=== PATIENT | male | born 1950 | race Caucasian/White ===

== ENCOUNTER 2019-11-06 12:30 | Inpatient (IN) | payer OTHER, MEDICARE, SELFPAY ==
[2019-11-06] VITALS (15 sets, daily range): BP systolic 121–185; BP diastolic 80–118; PULSE 76–135; RESP 16–24; TEMP 36.6–37.2; O2SAT 92–98; BMI 32.9
--- NOTE | ~2019-11-06 | XR_ITS ---
EXAMINATION: XR chest 2V DATE: 11/11/2019 13:09 INDICATION: Shortness of breath. Cough. TECHNIQUE: Frontal and lateral views of the chest were obtained. COMPARISON: Chest 2 views 11/09/2019, chest CT 11/06/2019 FINDINGS: A calcified left lung nodule is consistent with old granulomatous disease. There are airspa ce opacities at left lung base. No pleural effusion or pneumothorax. Cardiomegaly is noted. IMPRESSION: 1. Unchanged airspace opacities at left lung base, consistent with atelectasis versus pneumonia. 2. Cardiomegaly. Reviewed, dictated and finalized at location A. ICAL INFORMATICS EDUCATOR
--- NOTE | ~2019-11-06 | XR_ITS ---
EXAMINATION: XR chest 2V DATE: 11/06/2019 13:01 INDICATION: Shortness of breath. TECHNIQUE: Frontal and lateral views of the chest were obtained. COMPARISON: Chest 2 views 10/04/2019, chest CT 10/24/2018 FINDINGS: Calcified left lung nodules are consistent with old granulomatous disease. There are airspa ce and interstitial opacities in right mid and lower lung zones and left lower lung zone. There is ch ronic blunting of the posterior costophrenic angles, likely scarring. No pneumothorax. The heart size is normal. IMPRESSION: 1. Unchanged airspace and interstitial opacities in right mid and lower lung zones and left lower edwige g zone, consistent with pulmonary edema versus pneumonia. Reviewed, dictated and finalized at location A. TEGIC ACCOUNT EXECUTIVE IMPRESSION: 1. Unchanged airspace and interstitial opacities in right mid and lower lung zo ángel and left lower lung zone, consistent with pulmonary edema versus pneumonia.
--- NOTE | ~2019-11-06 | CT_ITS ---
EXAMINATION: CT chest wo con DATE: 11/06/2019 19:40 INDICATION: Shortness of breath. Pneumonia. TECHNIQUE: Computed tomography (CT) of the chest was performed without intravenous contrast. The dose -length product was 370.11 mGy-cm. Automated exposure control and iterative reconstruction technique were employed. COMPARISON: CT dated 10/24/2018 FINDINGS: There is mediastinal lymphadenopathy. For instance a right paratracheal lymph node measures 1.6 cm compared with 9 mm on prior examination. There are small bilateral pleural effusions. Cardiom egaly. There is atherosclerosis. No significant pericardial effusion. There are gallstones. There has been development of diffuse groundglass opacification with background of reticular nodularity involv ing the right upper and lower lobe. There is a subsolid 4.5 mm right upper lobe nodule, image 50. The re is a 7 mm groundglass nodule of the minor fissure. There is left upper lobe and lingular airspace disease. There is left lower lobe bronchiectasis is. More confluent airspace consolidation in the rig ht and left lower lobe seen on prior examination is nearly resolved. IMPRESSION: 1. Interval development of extensive groundglass opacification with underlying interstitial infiltrat es of the right upper and lower lobe. This most likely is infectious/inflammatory. Edema is less favo red. There are associated subsolid nodules in the right upper lobe/minor fissure, largest measuring 7 mm, likely infectious/inflammatory. 2: Near complete resolution of bilateral lower lobe consolidation since prior examination. There is p ersistent left lower lobe bronchiectasis. 3: Progression of mediastinal lymphadenopathy, likely reactive. 4: Small pleural effusions. 5: Cholelithiasis. Reviewed, dictated and finalized at location A. CLERK DATA ENTRY IMPRESSION: 1. Interval development of extensive groundglass opacification with underlying interstitial infiltrates of the right upper and lower lobe. This most likely is infectious/inflammatory. Edema is less favored. There are associated subsolid nodules in the right upper lobe/minor fissure, largest measuring 7 mm, likely i nfectious/inflammatory. 2: Near complete resolution of bilateral lower lobe consolidation since prior e xamination. There is persistent left lower lobe bronchiectasis. 3: Progression of mediastinal lymphadenopathy, likely reactive. 4: Small pleural effusions. 5: Cholelithiasis.
--- NOTE | ~2019-11-06 | XR_ITS ---
EXAMINATION: XR chest 2V DATE: 11/09/2019 14:53 INDICATION: Congestive heart failure. TECHNIQUE: Frontal and lateral views of the chest were obtained. COMPARISON: Chest 2 views 11/06/2019, chest CT 11/06/2019, 10/24/2018 FINDINGS: There is mild atelectasis in left lower lung zone. A calcified left lung nodule is consiste nt with old granulomatous disease. There are interstitial opacities in right midlung zone. No pleural effusion or pneumothorax. Cardiomegaly is noted. IMPRESSION: 1. Interstitial opacities in right midlung zone with improvement, consistent with mild pulmonary mary a. 2. Cardiomegaly. Reviewed, dictated and finalized at location A. CTOR OF CATERING IMPRESSION: 1. Interstitial opacities in right midlung zone with improvement, consistent wi th mild pulmonary edema. 2. Cardiomegaly.
--- NOTE | ~2019-11-06 | US_ITS ---
EXAMINATION:US venous doppler LE BI INDICATION:Bilateral leg swelling TECHNIQUE: Multiple grayscale, color flow and Doppler images of the lower extremity deep venous syste ms were obtained and reviewed. COMPARISON:10/04/2019 FINDINGS: The common femoral, superficial femoral and popliteal veins demonstrate normal respiratory variation, augmentation and compressibility. Color flow is also seen within the posterior tibial, pe roneal, greater saphenous and profunda veins. IMPRESSION: 1: No lower extremity deep venous thrombosis. Reviewed, dictated and finalized at location A. ESCENT MEDICINE SPECIALIST
--- NOTE | ~2019-11-06 | US_ITS ---
US renal BI DATE: 11/13/2019 08:41 INDICATION: Hematuria TECHNIQUE: Real-time imaging and Doppler analysis of the kidneys COMPARISON: None FINDINGS: The right kidney measures approximately 10.3 cm length, left kidney 11.7 cm length. There i s no evidence of hydronephrosis of either kidney. There is a 1.9 x 2.7 cm right renal lower pole sonolucency, probable cyst. There is thickening of the urinary bladder wall. No bladder filling defect is identified. IMPRESSION: Probable 1.9 x 2.7 cm right lower pole renal cyst. Considering the history of hematuria, CT examination or MRI examination may be of benefit Reviewed, dictated and finalized at Location A. Reviewed, dictated and finalized at location A. DENT INTERN
--- NOTE | 2019-11-06 12:31 | ECG_ITS ---
Measurements Intervals [place] Rate: 118 P: MS: 0 QRS: 61 QRSD: 82 T: 62 QT: 302 QTc: 424 Interpretive Statements ATRIAL FIBRILLATION WITH RAPID VENTRICULAR RESPONSE BORDERLINE ST ABNORMALITY- LATERAL LEADS BASELINE ARTIFACT- V2 ABNORMAL ECG Electronically Signed On 11-06-2019 14:15:25 BIT SHARPENER OPERATOR by Sushant Lassiter D.O.
[2019-11-06 12:52] LABS: Basophils Percent Auto 0.1 % (0.2-1.2); Eosinophils Absolute Auto 0.1 K/mm3 (0-0.3); Hematocrit 36.7 % (42.0-52.0); Hemoglobin 11.4 g/dL (14.0-18.0); Immature Granulocyte Absolute 0.03 K/mm3 (0.00-0.031); Immature Granulocyte Percent A 0.4 % (0-0.5); Lymphocytes Absolute Auto 0.87 K/mm3 (0.9-3.2); Lymphocytes Percent Auto 12.7 % (18.3-44.2); Mean Corpuscular HGB Conc 31.1 g/dl (32-36); Mean Corpuscular Hemoglobin 28.2 pg (26-34); Mean Corpuscular Volume 90.8 fl (80-100); Mean Platelet Volume 9.2 fl (7.4-10.4); Monocytes Absolute Auto 0.5 K/mm3 (0.1-0.6); Monocytes Percent Auto 7.3 % (2.6-8.5); Neutrophils Absolute Auto 5.4 K/mm3 (1.3-6.7); Neutrophils Percent Auto 78.5 % (45.5-73.1); Platelet Count Result 210 k/mm3 (150-375); Red Blood Count 4.04 M/mm3 (4.6-6.20); Red Cell Distribution Width 16.2 % (11.5-14.5); White Blood Count 6.8 K/mm3 (4.5-10.0)
[2019-11-06 13:04] LABS: Blood Urea Nitrogen 20 mg/dL (9-20); Calcium 9.5 mg/dL (8.4-10.2); Carbon Dioxide 23 mmol/L (22-30); Chloride 102 mmol/L (98-107); Estimated CRCL calculation 65 ml/min; Estimated Glomerular Filt Rate > 60; Glucose 143 mg/dL (75-110); Potassium 3.9 mmol/L (3.4-5.0); Sodium 139 mmol/L (137-145)
[2019-11-06 13:13] LABS: NT Pro B Type Natriuretic Pept 1170 PG/ML (5-100)
--- NOTE | 2019-11-06 13:34 | ED.GENADULT ---
HPI - General Adult General Chief complaint: Shortness of Breath/Dyspnea <Myrna Zavala PA-C - Last Filed: 11/06/19 16:40> Stated complaint: SOB <Myrna Zavala PA-C - Last Filed: 11/06/19 16:40> Time Seen by Provider: 11/06/19 13:31 <Myrna Zavala PA-C - Last Filed: 11/06/19 16:40> Source: patient <Myrna Zavala PA-C - Last Filed: 11/06/19 16:40> Mode of arrival: ambulatory <Myrna Zavala PA-C - Last Filed: 11/06/19 16:40> Limitations: no limitations <Myrna Zavala PA-C - Last Filed: 11/06/19 16:40> History of Present Illness HPI narrative: Patient is here due to shortness of breath which she says has been increasing over the past 5 days. He is also had swelling in both of his feet and now in his lower legs also progressing over the last 5 days and he has been sleeping in a chair so he can breathe. He states that he has chronic pneumonia that no one has been able to fix. He is on a Anoro and Ventolin at home for COPD. He has had multiple echoes that show aortic stenosis and history of a-fib. <Myrna Zavala PA-C - Last Filed: 11/06/19 16:40> Related Data Home medications: Home Medications Medication Instructions Recorded Confirmed rosuvastatin 40 mg tablet 40 mg PO DAILY 08/06/19 11/06/19 <Myrna Zavala PA-C - Last Filed: 11/06/19 16:40> Allergies/adverse reactions: Allergies Allergy/AdvReac Type Severity Reaction Status Date / Time venom-honey bee Allergy Unknown Swelling Verified 11/06/19 18:51 <Myrna Zavala PA-C - Last Filed: 11/06/19 16:40> [facility] Past Medical History Medical History: Medical History Aortic stenosis Atrial fibrillation Benign essential hypertension Chronic obstructive pulmonary disease, unspecified History of transesophageal echocardiography (NENA) HLD (hyperlipidemia) HTN (hypertension) Pneumonia Pulmonary hypertension <Myrna Zavala PA-C - Last Filed: 11/06/19 16:40> Surgical History Surgical History: Surgical History H/O elbow surgery bilateral ulnar tunnel release H/O repair of right rotator cuff History of cardiac catheterization History of carpal tunnel release bilaterally Hx of tonsillectomy Status post left foot surgery After fracture <Myrna Zavala PA-C - Last Filed: 11/06/19 16:40> Family History Family History: Family History Mother Patient's mother is , Onset Age: 75 Father Patient's father is , Onset Age: 8 <Myrna Zavala PA-C - Last Filed: 11/06/19 16:40> Social History Social History: Social History Smoking status: Former smoker Tobacco type: cigarettes and e-cigarettes Smoking end date: 10/06/11 Alcohol intake: never Substance use: never Living arrangements: with family Additional living arrangements comments: He lives at home in [place], [place] with his . Occupation/Education: occupation Additional occupation/education comments: He works at a [employer] for the last 28 years and currently is working. He does have smoke exposure from the fumes. Gender identity (if verbalized by the patient): Male Spiritual care concerns: No Agree to blood products: Yes <Myrna Zavala PA-C - Last Filed: 11/06/19 16:40> Exam Const: General: healthy appearing <Myrna Zavala PA-C - Last Filed: 11/06/19 16:40> Orientation/consciousness: patient oriented x3 <Myrna Zavala PA-C - Last Filed: 11/06/19 16:40> HENMT: Head: normal to inspection <Myrna Zavala PA-C - Last Filed: 11/06/19 16:40> Eyes: Conjunctivae: conjunctivae normal <Myrna Zavala PA-C - Last Filed: 11/06/19 16:40> Pupils: Equal, round and reactive pupil
[2019-11-06] MEDS: IPRATROPIUM BR 0.02% INH SOLN 0.5 MG/2.5 ML VIAL INHALATION ×2 (13:57→19:22)
[2019-11-06] MEDS: ALBUTEROL SULFATE NEB 2.5 MG/0.5 ML INH INHALATION ×2 (13:58→19:22)
[2019-11-06] MEDS: FUROSEMIDE INJ 40 MG/4 ML VIAL IV PUSH (14:12)
[2019-11-06 16:49] LABS: Troponin I < 0.012 ng/mL (0.000-0.034)
--- NOTE | 2019-11-06 18:21 | ADMGEN ---
This patient, Pérez Meyers I, was admitted to IMU Room 206-. Patient/family oriented to hospital policies and general routines including ID bracelet, bed and alarms, visiting hours, pain management, procedures, bathroom and other care routines, personal items, smoking policy, room service/diet, and visiting hours. Valuables list has been completed. Information on how to activate the Rapid Response Team has been discussed. Patient/Family are encouraged to report perceived risks to care and to ask questions if they do not understand what they are told or what they should do.
--- NOTE | 2019-11-06 18:53 | PM.IMHP ---
H&P: HPI History of Present Illness Chief complaint: CHF Narrative: Pérez Meyers I is a 68 year old male with a history of chronic atrial fibrillation on Xarelto, severe aortic stenosis s/p ENNA followed by Dr. Villalobos Cardiology, COPD followed by Dr. Moreno Pulmology, who presented to the emergency room with worsening shortness of breath with exertion, bilateral leg swelling, orthopnea for last 7 days. 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 The patient was last in the hospital on 10/04/2019 and was given steroids and oral antibiotics at that time. The patient states his symptoms improved but then the last 7 days his symptoms came back. He began noticing increased leg swelling, worsening dyspnea on exertion, and a slight productive cough with green brown sputum. Patient has been sleeping on his recliner for the last 7 nights due to shortness of breath and coughing while lying flat. Just with him standing up moving around the room and sitting back down he reports feeling like his breathing is labored. He reported having some redness to his lower extremities, left greater than right and some calf pains. He denies any fevers, chills, lightheadedness, dizziness, headache, nausea, vomiting, diarrhea, constipation, abdominal pain, urinary symptoms, dysuria, frequent urination, chest pain, rhinorrhea, chest congestion, or any other symptoms at this time. Temperature is 99? F, blood pressure 184/118, heart rate atrial fibrillation 111 bpm, respiratory rate 24, oxygenation 98% on room air. Initial lab shows no leukocytosis, stable normocytic anemia, normal BMP other than glucose at 143. BNP the 1170. Initial troponin was negative. CXR showed Unchanged airspace and interstitial opacities in right mid and lower lung zones and left lower lung zone, consistent with pulmonary edema versus pneumonia. Initial EKG showed atrial fibrillation with RVR with a heart rate of 118 bpm, with no acute STT wave abnormality. Patient was admitted to the hospital under observation with what looks like diastolic congestive heart failure exacerbation, IV Lasix, and cardiology consult for atrial fibrillation with RVR. Code status: Full code POA: Daughter, Isaura Sarkar PCP: Dr. Agnes Mclain Food Order Delivery Runner: Dr. Villalobos Freight Brake Operator Dr. Moreno Review of Systems Review of Systems: All systems reviewed & are unremarkable except as noted in HPI and below PMFSH Past Medical History Medical History Aortic stenosis Atrial fibrillation Benign essential hypertension Chronic obstructive pulmonary disease, unspecified History of transesophageal echocardiography (NENA) HLD (hyperlipidemia) HTN (hypertension) Pneumonia Pulmonary hypertension Surgical History Surgical History H/O elbow surgery bilateral ulnar tunnel release H/O repair of right rotator cuff History of cardiac catheterization History of carpal tunnel release bilaterally Hx of tonsillectomy Status post left foot surgery After fracture Family History Family History Mother Patient's mother is , Onset Age: 75 Father Patient's father is , Onset Age: 8 Social History Social History Smoking status: Former smoker Tobacco type: cigarettes and e-cigarettes Smoking end date: 10/06/11 Alcohol intake: never Substance use: never Living arrangements: with family Additional living arrangements comments: He lives at home in [place], [place] with his . Occupation/Education: occupation Additional occupation/education comments: He works at a [employer] for the last 28 years and currently is working. He does have smoke exposure from the
[2019-11-06 19:56] LABS: Troponin I < 0.012 ng/mL (0.000-0.034)
[2019-11-06] MEDS: FAMOTIDINE 20 MG/2 ML VIAL IV PUSH (20:17)
[2019-11-06] MEDS: METOPROLOL TARTRATE 50 MG TAB 100 MG PO (20:17)
[2019-11-07] VITALS (21 sets, daily range): BP systolic 117–156; BP diastolic 61–84; PULSE 60–107; RESP 16–22; TEMP 36.3–36.8; O2SAT 93–100
[2019-11-07] MEDS: ALBUTEROL SULFATE NEB 2.5 MG/0.5 ML INH INHALATION ×4 (01:33→19:27)
[2019-11-07] MEDS: IPRATROPIUM BR 0.02% INH SOLN 0.5 MG/2.5 ML VIAL INHALATION ×4 (01:34→19:27)
[2019-11-07 04:25] LABS: Hemoglobin 10.5 g/dL (14.0-18.0); Mean Corpuscular HGB Conc 30.9 g/dl (32-36); Mean Corpuscular Hemoglobin 27.9 pg (26-34); Mean Corpuscular Volume 90.2 fl (80-100); Mean Platelet Volume 8.9 fl (7.4-10.4); Platelet Count Result 204 k/mm3 (150-375); Red Blood Count 3.77 M/mm3 (4.6-6.20); Red Cell Distribution Width 16.4 % (11.5-14.5); White Blood Count 6.1 K/mm3 (4.5-10.0)
[2019-11-07 04:42] LABS: Blood Urea Nitrogen 21 mg/dL (9-20); Carbon Dioxide 26 mmol/L (22-30); Chloride 102 mmol/L (98-107); Estimated CRCL calculation 72 ml/min; Estimated Glomerular Filt Rate > 60; Glucose 120 mg/dL (75-110); Potassium 3.6 mmol/L (3.4-5.0); Sodium 140 mmol/L (137-145)
[2019-11-07 04:49] LABS: INR 1.3; Partial Thromboplastin Time 30.3 SECONDS (22.3-36.8)
[2019-11-07 04:57] LABS: Hemoglobin A1C 7.2 % (<5.7)
[2019-11-07] MEDS: FAMOTIDINE 20 MG/2 ML VIAL IV PUSH ×2 (08:49→20:58)
[2019-11-07] MEDS: FUROSEMIDE INJ 40 MG/4 ML VIAL IV PUSH ×2 (08:49→17:52)
[2019-11-07] MEDS: POTASSIUM CHLORIDE 20 MEQ TABLET.ER PO (08:49)
[2019-11-07] MEDS: ROSUVASTATIN 10 MG TABLET 40 MG PO (08:49)
[2019-11-07] MEDS: lisinopriL 20 MG TABLET 40 MG PO (08:50)
[2019-11-07] MEDS: RIVAROXABAN 20 MG TABLET PO (08:50)
[2019-11-07] MEDS: METOPROLOL TARTRATE 50 MG TAB 100 MG PO ×2 (08:52→17:52)
--- NOTE | 2019-11-07 12:35 | PM.IMPN ---
Progress Note: A&P Assessment and Plan (1) Acute on chronic diastolic CHF (congestive heart failure): Code(s): I50.33 - Acute on chronic diastolic (congestive) heart failure Status: Acute Assessment and Plan: Cardiology consulted and appreciate input. Will continue diuresis with IV Lasix but increased to q.12 hours. Continue lisinopril and metoprolol. Will continue to monitor. Kidney function and electrolytes stable. (2) Atrial fibrillation with RVR: Code(s): I48.91 - Unspecified atrial fibrillation Status: Acute Assessment and Plan: Known atrial fibrillation. Heart rate was increased on it admission but now controlled with his home metoprolol and diltiazem. Telemetry reviewed on 11/07/2019 with heart in acceptable range. Continue Xarelto for anticoagulation. Will monitor. (3) Leg edema: Code(s): R60.0 - Localized edema Status: Acute Assessment and Plan: Most likely result of CHF exacerbation. On IV Lasix. Venous Dopplers of the lower extremities negative for DVT. Will monitor with diuresis. (4) Dyspnea on exertion: Code(s): R06.09 - Other forms of dyspnea Status: Acute Assessment and Plan: Improved with treatment of CHF. Will monitor as also has COPD. Not requiring oxygen. (5) Recurrent pneumonia: Code(s): J18.9 - Pneumonia, unspecified organism Status: Acute Assessment and Plan: CT chest on admission with interval development of extensive ground-glass opacification with underlying interstitial infiltrates at the right upper and lower lobe, near complete resolution of bilateral lower lobe consolidation, progression of mediastinal lymphadenopathy likely reactive and small pleural effusions. WBC remains normal. Afebrile. Urine Legionella and strep pneumoniae antigens are negative. Not on antibiotics and will not placed on antibiotics this time. Will continue nebulizer treatments. Will monitor. (6) Chronic obstructive pulmonary disease, unspecified: Qualifiers: COPD type: unspecified COPD Qualified Code(s): J44.9 - Chronic obstructive pulmonary disease, unspecified Code(s): J44.9 - Chronic obstructive pulmonary disease, unspecified Status: Acute Assessment and Plan: Home Anoro non-formulary and will hold. Continue nebulizer treatments. Will monitor. (7) Benign essential hypertension: Code(s): I10 - Essential (primary) hypertension Status: Acute Assessment and Plan: Blood pressure reviewed 11/07/2019 acceptable. Will monitor on diltiazem and metoprolol along with diuresis. Adjust treatment as needed. (8) DVT prophylaxis: Code(s): Z29.9 - Encounter for prophylactic measures, unspecified Status: Acute Assessment and Plan: On Xarelto. Time Spent With Patient Time with patient: 15 - 25 minutes Subjective Date/time seen: 11/07/19 12:35 Interval history: Date of Service: 11/07/2019. Admitted with CHF exacerbation, pneumonia. Most worried about swelling his feet but does have some shortness of breath. No chest pain or pressure. No headache or dizziness. No abdominal pain. No nausea or vomiting. Review of Systems Constitutional: Constitutional: Denies chills and Denies fever(s) ENT: Denies nasal congestion and Denies nasal discharge Cardiovascular: Cardiovascular: Denies chest pain, Reports leg edema and Denies lightheadedness Respiratory: Respiratory: Denies cough and Reports dyspnea Gastrointestinal: Gastrointestinal: Denies abdominal pain, Denies nausea and Denies vomiting Genitourinary: Genitourinary: Reports no additional male genitourinary complaints Musculoskeletal: Musculoskeletal: Reports no additional musculoskeletal complaints Integumentary/Breasts: Skin/Breast: Denies rash Neurologic: Denies headache(s) Psychiatric: Psychiatric: Denies anxiety, Denies confusion and Denies depression Exam Narrative: Exam Narrative: Awak
--- NOTE | 2019-11-07 14:04 | PM.CNCAR ---
Assessment and Plan Additional Plan acute on chronic diastolic heart failure, sever with low flow, Hx of CAD, Hx of chronic AF rate is controlled, Plan get records of recent work up done in [facility] TTE, IV diuresis, if is considered sever in latest TTE then evaluate for TAVR, cont oral anticoagulation, cont metoprolol and Diltiazem and lisinopril. Watch for renal function and electrolytes. History of Present Illness History of Present Illness Consult date/time: 11/07/19 14:04 Consult reason: shortness of breath Reason For Visit: CHF Narrative: Patient presented with 10 days Hx of progressive SOB associated with cough with green/yellow sputum, SOB is worse with lying flat and midl activity, It's associated wiht bilateral LE swelling and fatigue but no fever chills or chest pain. He had Hx of chronic AF, reduced EF in past and moderate to sever . He is seen by Dr Madsen in Office who recently did cardiac test but not avilabel for review. Review of Systems Review of Systems: All systems reviewed & are unremarkable except as noted in HPI and below PMFSH Past Medical History Medical History Aortic stenosis Atrial fibrillation Benign essential hypertension Chronic obstructive pulmonary disease, unspecified History of transesophageal echocardiography (NENA) HLD (hyperlipidemia) HTN (hypertension) Pneumonia Pulmonary hypertension Surgical History Surgical History H/O elbow surgery bilateral ulnar tunnel release H/O repair of right rotator cuff History of cardiac catheterization History of carpal tunnel release bilaterally Hx of tonsillectomy Status post left foot surgery After fracture Family History Family History Mother Patient's mother is , Onset Age: 75 Father Patient's father is , Onset Age: 8 Social History Social History Smoking status: Former smoker Tobacco type: cigarettes and e-cigarettes Smoking end date: 10/06/11 Alcohol intake: never Substance use: never Living arrangements: with family Additional living arrangements comments: He lives at home in [place], [place] with his . Occupation/Education: occupation Additional occupation/education comments: He works at a [employer] for the last 28 years and currently is working. He does have smoke exposure from the fumes. Gender identity (if verbalized by the patient): Male Spiritual care concerns: No Agree to blood products: Yes Meds Home Medications and Allergies Home Medications Medication Instructions Recorded Confirmed Type rosuvastatin 40 mg tablet 40 mg PO DAILY 08/06/19 11/06/19 History umeclidinium 62.5 mcg-vilanterol 1 inhalation INHALATION DAILY #90 08/13/19 11/06/19 Rx 25 mcg/actuation powdr for each inhalation rivaroxaban 20 mg tablet 20 mg PO DAILY #90 tablet 08/23/19 11/06/19 Rx albuterol sulfate 90 mcg/actuation 2 puff INHALATION Q4H PRN #54 gm 09/01/19 11/06/19 Rx aerosol inhaler benazepril 40 mg tablet 40 mg PO DAILY #90 tablet 10/26/19 11/06/19 Rx diltiazem HCl 300 mg 300 mg PO DAILY #90 cap 10/26/19 11/06/19 Rx capsule,extended release 24 hr metoprolol tartrate 100 mg tablet 100 mg PO BID #180 tablet 10/26/19 11/06/19 Rx Allergies Allergy/AdvReac Type Severity Reaction Status Date / Time venom-honey bee Allergy Unknown Swelling Verified 11/06/19 18:51 Vital Signs Vital Signs - 24 hr 11/06/19 16:27 11/06/19 18:00 11/06/19 18:32 Temperature 36.8 C Pulse Rate 100 104 H 101 H Respiratory Rate 16 16 18 Blood Pressure 121/84 132/80 185/109 H Pulse Oximetry 96 96 95 11/06/19 19:23 11/06/19 19:30 11/06/19 19:56 Temperature 36.6 C Pulse Rate 91 88 122 H Respiratory Rate 18 18 22 H
[2019-11-08] VITALS (26 sets, daily range): BP systolic 113–138; BP diastolic 46–73; PULSE 57–137; RESP 16–22; TEMP 36.4–36.9; O2SAT 92–98
[2019-11-08] MEDS: ALBUTEROL SULFATE NEB 2.5 MG/0.5 ML INH INHALATION ×4 (02:01→20:59)
[2019-11-08] MEDS: IPRATROPIUM BR 0.02% INH SOLN 0.5 MG/2.5 ML VIAL INHALATION ×4 (02:01→20:59)
[2019-11-08 05:24] LABS: Blood Urea Nitrogen 19 mg/dL (9-20); Calcium 8.8 mg/dL (8.4-10.2); Carbon Dioxide 28 mmol/L (22-30); Chloride 100 mmol/L (98-107); Estimated CRCL calculation 66 ml/min; Estimated Glomerular Filt Rate > 60; Glucose 134 mg/dL (75-110); Potassium 3.8 mmol/L (3.4-5.0); Sodium 138 mmol/L (137-145)
[2019-11-08] MEDS: METOPROLOL TARTRATE 50 MG TAB 100 MG PO ×2 (10:10→18:15)
[2019-11-08] MEDS: lisinopriL 20 MG TABLET 40 MG PO (10:10)
[2019-11-08] MEDS: FAMOTIDINE 20 MG/2 ML VIAL IV PUSH ×2 (10:10→20:21)
[2019-11-08] MEDS: POTASSIUM CHLORIDE 20 MEQ TABLET.ER PO (10:10)
[2019-11-08] MEDS: FUROSEMIDE INJ 40 MG/4 ML VIAL IV PUSH ×2 (10:11→18:16)
[2019-11-08] MEDS: RIVAROXABAN 20 MG TABLET PO (10:11)
[2019-11-08] MEDS: ROSUVASTATIN 10 MG TABLET 40 MG PO (10:11)
--- NOTE | 2019-11-08 10:52 | PM.IMPN ---
Progress Note: A&P Assessment and Plan (1) Acute on chronic diastolic CHF (congestive heart failure): Code(s): I50.33 - Acute on chronic diastolic (congestive) heart failure Status: Acute Assessment and Plan: Cardiology consulted and appreciate input. Will continue diuresis with IV Lasix q.12 hours. Continue lisinopril and metoprolol. Kidney function and electrolytes stable. Discussed with Cardiology today. Atrial fibrillation probably contributing as he does have increased heart rate just before medication is given. Patient did have cardiac catheterization in June 2019 with 40-50% eccentric stenosis proximal to mid LAD, 30-40% eccentric stenosis mid circumflex, 70% stenosis proximal segment up to smart channel, 70-80% stenosis proximal segment LP PL branch, small non dominant RCA with moderate to severe disease in mid segment, EF 60%. Will continue to monitor on IMU today. (2) Atrial fibrillation with RVR: Code(s): I48.91 - Unspecified atrial fibrillation Status: Acute Assessment and Plan: Known atrial fibrillation. Telemetry reviewed on 11/08/2019 with atrial fibrillation with increase in heart rate just before medication but then in acceptable range. Remains on home diltiazem and metoprolol. Diltiazem may be contributing to edema in legs. Continue Xarelto for anticoagulation. Will monitor. (3) Leg edema: Code(s): R60.0 - Localized edema Status: Acute Assessment and Plan: Most likely result of CHF exacerbation, diltiazem use. On IV Lasix as noted above. Venous Dopplers of the lower extremities negative for DVT. Will monitor with diuresis. (4) Aortic stenosis: Qualifiers: Cardiac valve disease etiology: nonrheumatic Qualified Code(s): I35.0 - Nonrheumatic aortic (valve) stenosis Code(s): I35.0 - Nonrheumatic aortic (valve) stenosis Status: Acute Assessment and Plan: Per Cardiology, echocardiogram done 08/27/2019 at [facility] with EF 60-65%, mild aortic valve calcification with moderate aortic stenosis. Continue treatment of other issues as noted. (5) Dyspnea on exertion: Code(s): R06.09 - Other forms of dyspnea Status: Acute Assessment and Plan: Improved from admission with treatment of CHF. Probably multifactorial. Not requiring oxygen. Will monitor. (6) Benign essential hypertension: Code(s): I10 - Essential (primary) hypertension Status: Acute Assessment and Plan: Blood pressure reviewed 11/08/2019 acceptable. Will monitor on diltiazem and metoprolol along with diuresis. Adjust treatment as needed. (7) Recurrent pneumonia: Code(s): J18.9 - Pneumonia, unspecified organism Status: Acute Assessment and Plan: CT chest on admission with interval development of extensive ground-glass opacification with underlying interstitial infiltrates at the right upper and lower lobe, near complete resolution of bilateral lower lobe consolidation, progression of mediastinal lymphadenopathy likely reactive and small pleural effusions. WBC remains normal. Afebrile. Urine Legionella and strep pneumoniae antigens are negative. Will not start antibiotics. On nebulizer treatments. Will monitor. (8) Chronic obstructive pulmonary disease, unspecified: Qualifiers: COPD type: unspecified COPD Qualified Code(s): J44.9 - Chronic obstructive pulmonary disease, unspecified Code(s): J44.9 - Chronic obstructive pulmonary disease, unspecified Status: Acute Assessment and Plan: Home Anoro non-formulary and will hold. Will give Symbicort while here. Continue nebulizer treatments. Will monitor. (9) DVT prophylaxis: Code(s): Z29.9 - Encounter for prophylactic measures, unspecified Status: Acute Assessment and Plan: On Xarelto. Time Spent With Patient Time with patient: 15 - 25 minutes Subjective Date/time seen: 11/08/19 10:52 Inte
--- NOTE | 2019-11-08 14:08 | PM.PNCARD ---
Progress Note: A&P Assessment and Plan (1) Acute on chronic diastolic CHF (congestive heart failure): Code(s): I50.33 - Acute on chronic diastolic (congestive) heart failure Status: Acute Assessment and Plan: Diuresing well. Still short of breath with any exertional activity. Unable to complete a full sentence without sounding short of breath. Continues to have cough. Cough is nonproductive. Is receiving nebulizer treatments which do somewhat help. Lower extremity edema still present. Family members at bedside concerned about all of his swelling, shortness of breath and cough. Continue furosemide 40 mg b.i.d.. Monitor renal function and electrolytes closely. Aortic stenosis only moderate on echo as below. Heart failure could possibly to be due to AFib with rapid ventricular response. Heart rate well controlled after his medications but just prior to heart rate does elevate with exertional activity. Will continue to monitor heart rate response as he is diuresed. (2) Atrial fibrillation with RVR: Code(s): I48.91 - Unspecified atrial fibrillation Status: Acute Assessment and Plan: Chronic. Rate is well controlled after his medications. As above pain Chronic anticoagulation with Xarelto. (3) Aortic stenosis: Code(s): I35.0 - Nonrheumatic aortic (valve) stenosis Status: Acute Assessment and Plan: Echocardiogram 08/27/[address] Madsen at [facility] revealed: Normal LV size. Moderate LVH. Normal LV systolic function. Ejection fraction 60-65%. Mild left atrial enlargement with spontaneous echo contrast. No definite left atrial appendage thrombus. Small intra arterial shunt on Doppler however no [id number] shunt on injection of agitated normal saline. Normal mitral valve. Mild MR. Mild aortic valve calcification with diminished leaflet excursions of the left coronary; average planned metered aortic valve area 1.2 centimeter sq consistent with moderate aortic stenosis. Additional Plan Plan discussed Dr. Castaneda 1415 11/08/2019 Time Spent With Patient Time with patient: less than 15 minutes Subjective Date/time seen: 11/08/19 14:08 Interval history: Follow-up for: CHF exacerbation, pneumonia. Date of service: 11/08/2019 Subjective: Short of breath with any exertional activity. Lower extremity edema slightly improved but not going away very quickly. Continues to have cough which is now nonproductive. No abdominal pain. No lightheadedness. Review of Systems Constitutional: Constitutional: Reports lethargy Eyes: Eyes: Denies blurry vision ENT: Reports Normal hearing present and Denies epistaxis Cardiovascular: Cardiovascular: Denies chest pain, Denies diaphoresis, Reports pedal edema, Reports leg edema, Denies lightheadedness and Denies palpitations Respiratory: Respiratory: Reports cough (Nonproductive), Reports dyspnea on exertion and Denies wheezing Gastrointestinal: Gastrointestinal: Denies abdominal pain, Denies nausea and Denies vomiting Genitourinary: Genitourinary: Denies hematuria and Reports urinary frequency (Related to diuretics) Musculoskeletal: Musculoskeletal: Denies back pain and Denies neck pain Integumentary/Breasts: Skin/Breast: Reports dry skin and Denies unusual bruising Neurologic: Denies headache(s) and Denies numbness Psychiatric: Psychiatric: Denies anxiety Exam Const: General: cooperative and comfortable Nutritional Appearance: obese Orientation/consciousness: patient oriented x3 Limitations: no limitations HENMT: Head: normal to inspection Ears: hearing grossly normal bilaterally Mouth: Yes Normal oral and palatal mucosa present Eyes: General: appearance normal, both eyes and all related structures Neck: Neck: normal visual inspection and full ROM Chest: Chest palpation & inspection: normal inspection of the chest Resp: Effort & Inspection: not able to speak in complete sentences, no audible wheez
[2019-11-09] VITALS (27 sets, daily range): BP systolic 112–134; BP diastolic 52–86; PULSE 62–107; RESP 16–22; TEMP 35.9–36.8; O2SAT 93–96
[2019-11-09] MEDS: ALBUTEROL SULFATE NEB 2.5 MG/0.5 ML INH INHALATION ×4 (03:14→20:38)
[2019-11-09] MEDS: IPRATROPIUM BR 0.02% INH SOLN 0.5 MG/2.5 ML VIAL INHALATION ×4 (03:14→20:38)
[2019-11-09 05:18] LABS: Blood Urea Nitrogen 18 mg/dL (9-20); Carbon Dioxide 29 mmol/L (22-30); Chloride 95 mmol/L (98-107); Estimated CRCL calculation 56 ml/min; Estimated Glomerular Filt Rate > 60; Glucose 178 mg/dL (75-110); Potassium 3.4 mmol/L (3.4-5.0); Sodium 137 mmol/L (137-145)
--- NOTE | 2019-11-09 06:52 | PCRCNOTE ---
pt would not release home mdi's to RT to be placed in the home med drawer; RT explained to the patient that it is not the hospital policy to allow patients to keep possession of home meds; patient threatened to leave the hospital; RN was notified regarding the situation
[2019-11-09] MEDS: METOPROLOL TARTRATE 50 MG TAB 100 MG PO ×2 (07:55→17:25)
[2019-11-09] MEDS: FUROSEMIDE INJ 40 MG/4 ML VIAL IV PUSH ×2 (07:55→17:26)
[2019-11-09] MEDS: FAMOTIDINE 20 MG/2 ML VIAL IV PUSH ×2 (07:55→20:24)
[2019-11-09] MEDS: ROSUVASTATIN 10 MG TABLET 40 MG PO (07:55)
[2019-11-09] MEDS: lisinopriL 20 MG TABLET 40 MG PO (07:56)
[2019-11-09] MEDS: RIVAROXABAN 20 MG TABLET PO (07:56)
[2019-11-09] MEDS: POTASSIUM CHLORIDE 20 MEQ TABLET PO (07:56)
[2019-11-09] MEDS: POTASSIUM CHLORIDE 20 MEQ TABLET.ER PO (07:56)
--- NOTE | 2019-11-09 11:55 | PM.PNCARD ---
Progress Note: A&P Assessment and Plan (1) Acute on chronic diastolic CHF (congestive heart failure): Code(s): I50.33 - Acute on chronic diastolic (congestive) heart failure Status: Acute Assessment and Plan: Diuresing well. Still short of breath with any exertional activity. Unable to complete a full sentence without sounding short of breath. Continues to have cough. Cough is nonproductive. Is receiving nebulizer treatments which do somewhat help. Lower extremity edema still present. Continue furosemide 40 mg b.i.d.. Monitor renal function and electrolytes closely. Aortic stenosis only moderate on echo as below. Heart failure could possibly to be due to AFib with rapid ventricular response. Heart rate well controlled after his medications but just prior to heart rate does elevate with exertional activity. Will continue to monitor heart rate response as he is diuresed. Will give a dose of metolazone 2.5 mg p.o. x1 Potassium chloride 40 mEq p.o. times 1 PA and lateral chest x-ray (2) Atrial fibrillation with RVR: Code(s): I48.91 - Unspecified atrial fibrillation Status: Acute Assessment and Plan: Chronic. Rate is well controlled after his medications. As above pain Chronic anticoagulation with Xarelto. (3) Aortic stenosis: Qualifiers: Cardiac valve disease etiology: nonrheumatic Qualified Code(s): I35.0 - Nonrheumatic aortic (valve) stenosis Code(s): I35.0 - Nonrheumatic aortic (valve) stenosis Status: Acute Assessment and Plan: Echocardiogram 08/27/[address] Madsen at [facility] revealed: Normal LV size. Moderate LVH. Normal LV systolic function. Ejection fraction 60-65%. Mild left atrial enlargement with spontaneous echo contrast. No definite left atrial appendage thrombus. Small intra arterial shunt on Doppler however no [id number] shunt on injection of agitated normal saline. Normal mitral valve. Mild MR. Mild aortic valve calcification with diminished leaflet excursions of the left coronary; average planned metered aortic valve area 1.2 centimeter sq consistent with moderate aortic stenosis. Subjective Date/time seen: 11/09/19 11:55 Interval history: Date of Service: 11/08/2019. Admitted with CHF exacerbation, pneumonia. Still has edema in legs. Also still with shortness of breath with exertion. No chest pain. No abdominal pain. No dizziness. Review of Systems Review of Systems: All systems reviewed & are unremarkable except as noted in HPI and below Constitutional: Constitutional: Denies headache(s) and Reports lethargy Eyes: Eyes: Denies blurry vision ENT: Reports Normal hearing present, Denies headache(s), Denies epistaxis and Denies neck pain Cardiovascular: Cardiovascular: Denies chest pain, Denies diaphoresis, Reports pedal edema, Reports leg edema, Denies lightheadedness, Denies palpitations and Reports dyspnea on exertion Respiratory: Respiratory: Reports cough (Nonproductive), Reports dyspnea on exertion and Denies wheezing Gastrointestinal: Gastrointestinal: Denies abdominal pain, Denies nausea and Denies vomiting Genitourinary: Genitourinary: Denies hematuria and Reports urinary frequency (Related to diuretics) Musculoskeletal: Musculoskeletal: Denies back pain, Denies neck pain and Denies numbness Integumentary/Breasts: Skin/Breast: Reports dry skin and Denies unusual bruising Neurologic: Reports Normal hearing present, Denies headache(s) and Denies numbness Psychiatric: Psychiatric: Denies anxiety Endocrine: Endocrine: Denies palpitations Allergic/Immunologic: Allergic/Immunologic: Denies wheezing Exam Narrative: Exam Narrative: General: Able to lie flat, no acute distress HEENT: moist mucous membranes, no jaundice or cyanosis or pallor, no facial asymmetry Neck: +ve JVD, No Carotid bruit, No Neck swelling Respiratory: No chest wall tenderness, equal air entry and expansion, CTAB C
--- NOTE | 2019-11-09 12:26 | PM.IMPN ---
Progress Note: A&P Assessment and Plan (1) Acute on chronic diastolic CHF (congestive heart failure): Code(s): I50.33 - Acute on chronic diastolic (congestive) heart failure Status: Acute Assessment and Plan: Patient having excellent UOP and edema slowly improving. Echo as mentioned below. Kidney function and electrolytes stable. Appreciate Cardiology input. Atrial fibrillation probably contributing to the CHF. Continue diuresis with IV Lasix q.12 hours. Continue lisinopril and metoprolol. (2) Atrial fibrillation with RVR: Code(s): I48.91 - Unspecified atrial fibrillation Status: Acute Assessment and Plan: Known atrial fibrillation. Remains on home diltiazem and metoprolol. Diltiazem may be contributing to edema in legs. Continue Xarelto for anticoagulation. Will monitor. (3) CAD (coronary artery disease): Code(s): I25.10 - Atherosclerotic heart disease of [place] coronary artery without angina pectoris Status: Acute Assessment and Plan: Patient had a cardiac catheterization in June 2019 with 40-50% eccentric stenosis proximal to mid LAD, 30-40% eccentric stenosis mid circumflex, 70% stenosis proximal segment up to smart channel, 70-80% stenosis proximal segment LP PL branch, small non dominant RCA with moderate to severe disease in mid segment, EF 60%. Continue medical managment (4) Leg edema: Code(s): R60.0 - Localized edema Status: Acute Assessment and Plan: Most likely result of CHF exacerbation, diltiazem use. On IV Lasix as noted above. Venous Dopplers of the lower extremities negative for DVT. Will monitor with diuresis. (5) Aortic stenosis: Qualifiers: Cardiac valve disease etiology: nonrheumatic Qualified Code(s): I35.0 - Nonrheumatic aortic (valve) stenosis Code(s): I35.0 - Nonrheumatic aortic (valve) stenosis Status: Acute Assessment and Plan: Per Cardiology, echocardiogram done 08/27/2019 at [facility] with EF 60-65%, mild aortic valve calcification with moderate aortic stenosis. Continue treatment of other issues as noted. (6) Dyspnea on exertion: Code(s): R06.09 - Other forms of dyspnea Status: Acute Assessment and Plan: Improved from admission with treatment of CHF. Probably multifactorial. Not requiring oxygen. Will monitor. (7) Benign essential hypertension: Code(s): I10 - Essential (primary) hypertension Status: Acute Assessment and Plan: Blood pressure reviewed 11/09/2019. BP well controlled. Continue diltiazem and metoprolol. Adjust treatment as needed. (8) Recurrent pneumonia: Code(s): J18.9 - Pneumonia, unspecified organism Status: Acute Assessment and Plan: CT chest on admission with interval development of extensive ground-glass opacification with underlying interstitial infiltrates at the right upper and lower lobe, near complete resolution of bilateral lower lobe consolidation, progression of mediastinal lymphadenopathy likely reactive and small pleural effusions. WBC not checked today. Remains afebrile. Urine Legionella and strep pneumoniae antigens are negative. Continue to hold on antibiotics. Continue nebulizer treatments. Will monitor. (9) Chronic obstructive pulmonary disease, unspecified: Qualifiers: COPD type: unspecified COPD Qualified Code(s): J44.9 - Chronic obstructive pulmonary disease, unspecified Code(s): J44.9 - Chronic obstructive pulmonary disease, unspecified Status: Acute Assessment and Plan: Home Anoro non-formulary so changed to Symbicort. Continue nebulizer treatments. (10) DVT prophylaxis: Code(s): Z29.9 - Encounter for prophylactic measures, unspecified Status: Acute Assessment and Plan: On Xarelto. Subjective Date/time seen: 11/09/19 12:26 Interval history: 68yo male here with CHF exacerb
[2019-11-09] MEDS: POTASSIUM CHLORIDE 20 MEQ TABLET 40 MEQ PO (13:54)
[2019-11-09] MEDS: metOLazone 2.5 MG TABLET PO (13:54)
[2019-11-10] VITALS (26 sets, daily range): BP systolic 103–128; BP diastolic 46–87; PULSE 59–125; RESP 18–22; TEMP 36.2–36.7; O2SAT 94–99
[2019-11-10] MEDS: IPRATROPIUM BR 0.02% INH SOLN 0.5 MG/2.5 ML VIAL INHALATION ×4 (02:30→20:50)
[2019-11-10] MEDS: ALBUTEROL SULFATE NEB 2.5 MG/0.5 ML INH INHALATION ×4 (02:30→20:50)
[2019-11-10 04:56] LABS: Hematocrit 37.7 % (42.0-52.0); Hemoglobin 11.8 g/dL (14.0-18.0); Mean Corpuscular HGB Conc 31.3 g/dl (32-36); Mean Corpuscular Hemoglobin 28.2 pg (26-34); Mean Corpuscular Volume 90.2 fl (80-100); Mean Platelet Volume 8.8 fl (7.4-10.4); Platelet Count Result 225 k/mm3 (150-375); Red Blood Count 4.18 M/mm3 (4.6-6.20); Red Cell Distribution Width 16.2 % (11.5-14.5); White Blood Count 6.9 K/mm3 (4.5-10.0)
[2019-11-10 05:17] LABS: Albumin Level 4.3 g/dL (3.5-5.1); Blood Urea Nitrogen 19 mg/dL (9-20); Calcium 9.3 mg/dL (8.4-10.2); Carbon Dioxide 31 mmol/L (22-30); Chloride 95 mmol/L (98-107); Estimated CRCL calculation 52 ml/min; Estimated Glomerular Filt Rate 60; Glucose 178 mg/dL (75-110); Magnesium 2.1 mg/dL (1.6-2.3); Phosphorus 4.4 mg/dL (2.5-4.5); Potassium 3.5 mmol/L (3.4-5.0); Sodium 138 mmol/L (137-145)
[2019-11-10] MEDS: METOPROLOL TARTRATE 50 MG TAB 100 MG PO ×2 (08:20→20:28)
[2019-11-10] MEDS: ROSUVASTATIN 10 MG TABLET 40 MG PO (08:20)
[2019-11-10] MEDS: lisinopriL 20 MG TABLET 40 MG PO (08:20)
[2019-11-10] MEDS: RIVAROXABAN 20 MG TABLET PO (08:20)
[2019-11-10] MEDS: FUROSEMIDE INJ 40 MG/4 ML VIAL IV PUSH ×2 (08:21→18:23)
[2019-11-10] MEDS: POTASSIUM CHLORIDE 20 MEQ TABLET.ER PO (08:21)
[2019-11-10] MEDS: FAMOTIDINE 20 MG/2 ML VIAL IV PUSH ×2 (08:21→20:28)
--- NOTE | 2019-11-10 12:33 | PM.PNCARD ---
Progress Note: A&P Assessment and Plan (1) Acute on chronic diastolic CHF (congestive heart failure): Code(s): I50.33 - Acute on chronic diastolic (congestive) heart failure Status: Acute Assessment and Plan: Diuresing well. Still short of breath with any exertional activity. Unable to complete a full sentence without sounding short of breath. Continues to have cough. Cough is nonproductive. Is receiving nebulizer treatments which do somewhat help. Lower extremity edema still present. Continue furosemide 40 mg b.i.d.. Monitor renal function and electrolytes closely. Aortic stenosis only moderate on echo as below. Heart failure could possibly to be due to AFib with rapid ventricular response. Heart rate well controlled after his medications but just prior to heart rate does elevate with exertional activity. Will continue to monitor heart rate response as he is diuresed. KCl 40 mEq p.o. x1. Chest x-ray shows improved congestion Continue IV diuretics. Anticipate transition to oral diuretics tomorrow (2) Atrial fibrillation with RVR: Code(s): I48.91 - Unspecified atrial fibrillation Status: Acute Assessment and Plan: Chronic. Rate is well controlled after his medications. As above pain Chronic anticoagulation with Xarelto. (3) Aortic stenosis: Qualifiers: Cardiac valve disease etiology: nonrheumatic Qualified Code(s): I35.0 - Nonrheumatic aortic (valve) stenosis Code(s): I35.0 - Nonrheumatic aortic (valve) stenosis Status: Acute Assessment and Plan: Echocardiogram 08/27/[address] Madsen at [facility] revealed: Normal LV size. Moderate LVH. Normal LV systolic function. Ejection fraction 60-65%. Mild left atrial enlargement with spontaneous echo contrast. No definite left atrial appendage thrombus. Small intra arterial shunt on Doppler however no [id number] shunt on injection of agitated normal saline. Normal mitral valve. Mild MR. Mild aortic valve calcification with diminished leaflet excursions of the left coronary; average planned metered aortic valve area 1.2 centimeter sq consistent with moderate aortic stenosis. Subjective Date/time seen: 11/10/19 12:33 Interval history: Date of Service: 11/10/2019. Admitted with CHF exacerbation, pneumonia. Still has edema in legs but better. Also still with shortness of breath with exertion. No chest pain. No abdominal pain. No dizziness. Review of Systems Review of Systems: All systems reviewed & are unremarkable except as noted in HPI and below Constitutional: Constitutional: Denies headache(s) and Reports lethargy Eyes: Eyes: Denies blurry vision ENT: Reports Normal hearing present, Denies headache(s), Denies epistaxis and Denies neck pain Cardiovascular: Cardiovascular: Denies chest pain, Denies diaphoresis, Reports pedal edema, Reports leg edema, Denies lightheadedness, Denies palpitations and Reports dyspnea on exertion Respiratory: Respiratory: Reports cough (Nonproductive), Reports dyspnea on exertion and Denies wheezing Gastrointestinal: Gastrointestinal: Denies abdominal pain, Denies nausea and Denies vomiting Genitourinary: Genitourinary: Denies hematuria and Reports urinary frequency (Related to diuretics) Musculoskeletal: Musculoskeletal: Denies back pain, Denies neck pain and Denies numbness Integumentary/Breasts: Skin/Breast: Reports dry skin and Denies unusual bruising Neurologic: Reports Normal hearing present, Denies headache(s) and Denies numbness Psychiatric: Psychiatric: Denies anxiety Endocrine: Endocrine: Denies palpitations Allergic/Immunologic: Allergic/Immunologic: Denies wheezing Exam Narrative: Exam Narrative: General: Able to lie flat, no acute distress HEENT: moist mucous membranes, no jaundice or cyanosis or pallor, no facial asymmetry Neck: +ve JVD, No Carotid bruit, No Neck swelling Respiratory: No chest wall tenderness, equal ai
[2019-11-10] MEDS: POTASSIUM CHLORIDE 20 MEQ TABLET 40 MEQ PO (12:56)
--- NOTE | 2019-11-10 17:58 | PM.IMPN ---
Progress Note: A&P Assessment and Plan (1) Acute on chronic diastolic CHF (congestive heart failure): Code(s): I50.33 - Acute on chronic diastolic (congestive) heart failure Status: Acute Assessment and Plan: Patient having excellent UOP on 3-4L per day and edema slowly improving. Echo as mentioned below. Kidney function and electrolytes stable. Appreciate Cardiology input. Atrial fibrillation probably contributing to the CHF. Continue diuresis with IV Lasix bid. Continue lisinopril and metoprolol. Add Aden hose. (2) Atrial fibrillation with RVR: Code(s): I48.91 - Unspecified atrial fibrillation Status: Acute Assessment and Plan: Known atrial fibrillation. Remains on home diltiazem and metoprolol. Diltiazem may be contributing to edema in legs. HR more elevated recently possibly from his increased activity level. Continue Xarelto for anticoagulation. Will monitor on tele for now. (3) CAD (coronary artery disease): Code(s): I25.10 - Atherosclerotic heart disease of [place] coronary artery without angina pectoris Status: Acute Assessment and Plan: Patient had a cardiac catheterization in June 2019 with 40-50% eccentric stenosis proximal to mid LAD, 30-40% eccentric stenosis mid circumflex, 70% stenosis proximal segment up to smart channel, 70-80% stenosis proximal segment LP PL branch, small non dominant RCA with moderate to severe disease in mid segment, EF 60%. Continue medical management with metoprolol, Crestor. (4) Leg edema: Code(s): R60.0 - Localized edema Status: Acute Assessment and Plan: Most likely result of CHF exacerbation, diltiazem use. On IV Lasix as noted above. Venous Dopplers of the lower extremities negative for DVT. Will monitor with diuresis. (5) Aortic stenosis: Qualifiers: Cardiac valve disease etiology: nonrheumatic Qualified Code(s): I35.0 - Nonrheumatic aortic (valve) stenosis Code(s): I35.0 - Nonrheumatic aortic (valve) stenosis Status: Acute Assessment and Plan: Per Cardiology, echo done 08/27/2019 at [facility] with EF 60-65%, mild aortic valve calcification with moderate aortic stenosis. Continue treatment of other issues as noted. (6) Dyspnea on exertion: Code(s): R06.09 - Other forms of dyspnea Status: Acute Assessment and Plan: Improved from admission with treatment of CHF. Probably multifactorial. Not requiring oxygen currently. Will monitor. (7) Benign essential hypertension: Code(s): I10 - Essential (primary) hypertension Status: Acute Assessment and Plan: Blood pressure reviewed 11/10/2019. BP remains well controlled. Continue diltiazem, lisinopril and metoprolol. Adjust treatment as needed. (8) Recurrent pneumonia: Code(s): J18.9 - Pneumonia, unspecified organism Status: Acute Assessment and Plan: CT chest on admission with interval development of extensive ground-glass opacification with underlying interstitial infiltrates at the right upper and lower lobe, near complete resolution of bilateral lower lobe consolidation, progression of mediastinal lymphadenopathy likely reactive and small pleural effusions. WBC remains normal. No change in the chronic cough. Remains afebrile. Urine Legionella and strep pneumoniae antigens are negative. Continue to hold on antibiotics. Continue nebulizer treatments. Will monitor. (9) Chronic obstructive pulmonary disease, unspecified: Qualifiers: COPD type: unspecified COPD Qualified Code(s): J44.9 - Chronic obstructive pulmonary disease, unspecified Code(s): J44.9 - Chronic obstructive pulmonary disease, unspecified Status: Acute Assessment and Plan: Home Anoro non-formulary so changed to Symbicort. Continue nebulizer treatments. (10) DVT prophylaxis: Code(s): Z29.9 - Encounter for prophyl
[2019-11-11] VITALS (28 sets, daily range): BP systolic 91–158; BP diastolic 54–90; PULSE 74–152; RESP 18–182; TEMP 36.7–38; O2SAT 92–94
[2019-11-11] MEDS: IPRATROPIUM BR 0.02% INH SOLN 0.5 MG/2.5 ML VIAL INHALATION ×4 (01:45→21:38)
[2019-11-11] MEDS: ALBUTEROL SULFATE NEB 2.5 MG/0.5 ML INH INHALATION ×4 (01:45→21:38)
[2019-11-11 05:32] LABS: Blood Urea Nitrogen 28 mg/dL (9-20); Calcium 9.1 mg/dL (8.4-10.2); Carbon Dioxide 33 mmol/L (22-30); Chloride 90 mmol/L (98-107); Estimated CRCL calculation 53 ml/min; Estimated Glomerular Filt Rate 51; Glucose 145 mg/dL (75-110); Potassium 4.1 mmol/L (3.4-5.0); Sodium 133 mmol/L (137-145)
[2019-11-11] MEDS: FAMOTIDINE 20 MG/2 ML VIAL IV PUSH ×2 (09:01→21:26)
[2019-11-11] MEDS: FUROSEMIDE INJ 40 MG/4 ML VIAL IV PUSH (09:01)
[2019-11-11] MEDS: lisinopriL 20 MG TABLET 40 MG PO (09:02)
[2019-11-11] MEDS: POTASSIUM CHLORIDE 20 MEQ TABLET.ER PO (09:02)
[2019-11-11] MEDS: ROSUVASTATIN 10 MG TABLET 40 MG PO (09:03)
[2019-11-11] MEDS: METOPROLOL TARTRATE 50 MG TAB 100 MG PO ×2 (09:03→21:26)
[2019-11-11] MEDS: RIVAROXABAN 20 MG TABLET PO (09:03)
[2019-11-11] MEDS: ACETAMINOPHEN 325 MG TABLET 650 MG PO ×2 (09:41→18:01)
--- NOTE | 2019-11-11 12:02 | PM.PNCARD ---
Progress Note: A&P Assessment and Plan (1) Acute on chronic diastolic CHF (congestive heart failure): Code(s): I50.33 - Acute on chronic diastolic (congestive) heart failure Status: Acute Assessment and Plan: Diuresing well. Still short of breath with any exertional activity. Unable to complete a full sentence without sounding short of breath. Continues to have cough. Cough is nonproductive. Is receiving nebulizer treatments which do somewhat help. Lower extremity edema still present. Continue furosemide 40 mg b.i.d.. Monitor renal function and electrolytes closely. Aortic stenosis only moderate on echo as below. Heart failure could possibly to be due to AFib with rapid ventricular response. Heart rate well controlled after his medications but just prior to heart rate does elevate with exertional activity. Will continue to monitor heart rate response as he is diuresed. Stop IV diuretics at this point. He is becoming prerenal. Start him on furosemide 40 mg p.o. b.i.d.. PA and lateral chest x-ray now to evaluate his cough, low-grade fever and for follow-up on his CHF (2) Atrial fibrillation with RVR: Code(s): I48.91 - Unspecified atrial fibrillation Status: Acute Assessment and Plan: Chronic. Rate isIncreasing some today. Continue current diltiazem and metoprolol dosages but certainly could increase if needed. As above pain Chronic anticoagulation with Xarelto. (3) Aortic stenosis: Qualifiers: Cardiac valve disease etiology: nonrheumatic Qualified Code(s): I35.0 - Nonrheumatic aortic (valve) stenosis Code(s): I35.0 - Nonrheumatic aortic (valve) stenosis Status: Acute Assessment and Plan: Echocardiogram 08/27/[address] Madsen at [facility] revealed: Normal LV size. Moderate LVH. Normal LV systolic function. Ejection fraction 60-65%. Mild left atrial enlargement with spontaneous echo contrast. No definite left atrial appendage thrombus. Small intra arterial shunt on Doppler however no [id number] shunt on injection of agitated normal saline. Normal mitral valve. Mild MR. Mild aortic valve calcification with diminished leaflet excursions of the left coronary; average planned metered aortic valve area 1.2 centimeter sq consistent with moderate aortic stenosis. Subjective Date/time seen: 11/11/19 12:02 Interval history: Date of Service: 11/11/2019. Admitted with CHF exacerbation, pneumonia. Still has edema in legs but better. still complains of shortness of breath and now has developed a cough and low-grade fever. No chest pain. No abdominal pain. No dizziness. Review of Systems Review of Systems: All systems reviewed & are unremarkable except as noted in HPI and below Constitutional: Constitutional: Denies headache(s) and Reports lethargy Eyes: Eyes: Denies blurry vision ENT: Reports Normal hearing present, Denies headache(s), Denies epistaxis and Denies neck pain Cardiovascular: Cardiovascular: Denies chest pain, Denies diaphoresis, Reports pedal edema, Reports leg edema, Denies lightheadedness, Denies palpitations and Reports dyspnea on exertion Respiratory: Respiratory: Reports cough (Nonproductive), Reports dyspnea on exertion and Denies wheezing Gastrointestinal: Gastrointestinal: Denies abdominal pain, Denies nausea and Denies vomiting Genitourinary: Genitourinary: Denies hematuria and Reports urinary frequency (Related to diuretics) Musculoskeletal: Musculoskeletal: Denies back pain, Denies neck pain and Denies numbness Integumentary/Breasts: Skin/Breast: Reports dry skin and Denies unusual bruising Neurologic: Reports Normal hearing present, Denies headache(s) and Denies numbness Psychiatric: Psychiatric: Denies anxiety Endocrine: Endocrine: Denies palpitations Allergic/Immunologic: Allergic/Immunologic: Denies wheezing Exam Narrative: Exam Narrative: General: Able to lie flat, no acute distres
--- NOTE | 2019-11-11 13:14 | PM.IMPN ---
Progress Note: A&P Assessment and Plan (1) Acute on chronic diastolic CHF (congestive heart failure): Code(s): I50.33 - Acute on chronic diastolic (congestive) heart failure Status: Acute Assessment and Plan: Patient having excellent UOP on 3-4L per day and edema slowly improving. Echo as mentioned below. Kidney function higher today with Cr 1.4. Electrolytes stable. Appreciate Cardiology input. Atrial fibrillation probably contributing to the CHF. Lasix changed to oral route. Continue to monitor in IMU (2) Atrial fibrillation with RVR: Code(s): I48.91 - Unspecified atrial fibrillation Status: Acute Assessment and Plan: Known atrial fibrillation. Remains on home diltiazem and metoprolol. HR elevated at times possibly due to increase activity and prior to next dose. Continue Xarelto for anticoagulation. Continue tele. (3) CAD (coronary artery disease): Code(s): I25.10 - Atherosclerotic heart disease of [place] coronary artery without angina pectoris Status: Acute Assessment and Plan: Patient had a cardiac catheterization in June 2019 with 40-50% eccentric stenosis proximal to mid LAD, 30-40% eccentric stenosis mid circumflex, 70% stenosis proximal segment up to smart channel, 70-80% stenosis proximal segment LP PL branch, small non dominant RCA with moderate to severe disease in mid segment, EF 60%. Continue medical management with metoprolol, Crestor. (4) Leg edema: Code(s): R60.0 - Localized edema Status: Acute Assessment and Plan: Most likely result of CHF exacerbation, diltiazem use. On IV Lasix as noted above. Venous Dopplers of the lower extremities negative for DVT. Will monitor with diuresis. (5) Aortic stenosis: Qualifiers: Cardiac valve disease etiology: nonrheumatic Qualified Code(s): I35.0 - Nonrheumatic aortic (valve) stenosis Code(s): I35.0 - Nonrheumatic aortic (valve) stenosis Status: Acute Assessment and Plan: Per Cardiology, echo done 08/27/2019 at [facility] with EF 60-65%, mild aortic valve calcification with moderate aortic stenosis. Continue treatment of other issues as noted. (6) Benign essential hypertension: Code(s): I10 - Essential (primary) hypertension Status: Acute Assessment and Plan: Blood pressure reviewed 11/11/2019. BP remains reasonably well controlled. Continue diltiazem, lisinopril and metoprolol. Adjust treatment as needed. (7) Recurrent pneumonia: Code(s): J18.9 - Pneumonia, unspecified organism Status: Acute Assessment and Plan: CT chest on 11/06/19 with interval development of extensive ground-glass opacification with underlying interstitial infiltrates at the right upper and lower lobe, near complete resolution of bilateral lower lobe consolidation, progression of mediastinal lymphadenopathy likely reactive and small pleural effusions. Has been having this nonproductive cough but now productive today. WBC normal yesterday. Temp to 100.4. Urine Legionella and strep pneumoniae antigens are negative. Continue nebulizer treatments. Will check CBC, CXR, UA. UA showing 3+ Blood with >75 RBC. WBC normal but CRP 4.9. CXR showing persistent LLL airspace disease. Blood, sputum and MRSA swab pending. Start Rocephin and Azithro. (8) Chronic obstructive pulmonary disease, unspecified: Qualifiers: COPD type: unspecified COPD Qualified Code(s): J44.9 - Chronic obstructive pulmonary disease, unspecified Code(s): J44.9 - Chronic obstructive pulmonary disease, unspecified Status: Acute Assessment and Plan: Home Anoro non-formulary so changed to Symbicort. Continue nebulizer treatments. (9) DVT prophylaxis: Code(s): Z29.9 - Encounter for prophylactic measures, unspecified Status: Acute Assessment and Plan: On Xarelto. Subjective Date/time seen:
[2019-11-11 14:34] LABS: Pneumococcal Antigen Urine Not Detected (Not Detected)
[2019-11-11 16:12] LABS: Basophils Percent Auto 0.3 % (0.2-1.2); Eosinophils Percent Auto 0.5 % (0-4.4); Hematocrit 38.1 % (42.0-52.0); Hemoglobin 11.8 g/dL (14.0-18.0); Immature Granulocyte Absolute 0.03 K/mm3 (0.00-0.031); Immature Granulocyte Percent A 0.5 % (0-0.5); Lymphocytes Absolute Auto 0.81 K/mm3 (0.9-3.2); Lymphocytes Percent Auto 12.2 % (18.3-44.2); Mean Corpuscular Volume 90.3 fl (80-100); Mean Platelet Volume 9.3 fl (7.4-10.4); Monocytes Absolute Auto 0.9 K/mm3 (0.1-0.6); Neutrophils Absolute Auto 4.9 K/mm3 (1.3-6.7); Neutrophils Percent Auto 73.5 % (45.5-73.1); Platelet Count Result 213 k/mm3 (150-375); Red Blood Count 4.22 M/mm3 (4.6-6.20); Red Cell Distribution Width 16.8 % (11.5-14.5); White Blood Count 6.6 K/mm3 (4.5-10.0)
[2019-11-11] MEDS: AZITHROMYCIN 250 MG TABLET 500 MG PO (16:25)
[2019-11-11 16:27] LABS: CRP 4.9 mg/dL (<1.0)
[2019-11-11] MEDS: FUROSEMIDE 40 MG TABLET PO (16:27)
[2019-11-11 17:44] LABS: Add Urine Microscopic? YES; Appearance Urine Clear (Clear); Bilirubin Urine Negative (Negative); Blood Urine 3+ (Negative); Color Urine Yellow (Yellow); Glucose Urine UA Negative (Negative); Ketones Urine Negative (Negative); Leukocyte Esterase Ur Negative LEU/UL (Negative); Mucus Urine Rare /lpf; Nitrate Urine Negative (Negative); Protein Urine Negative (Negative); RBC Urine >75 /hpf (0-2); Specific Grav Ur 1.015 (1.001-1.035); Urobilinogen Urine Negative mg/dL (<2.0)
[2019-11-11 19:58] LABS: Legionella pneumophila Ag Ur Not Detected (Not Detected)
[2019-11-11] MEDS: MELATONIN 3 MG TABLET PO (21:26)
[2019-11-12] VITALS (23 sets, daily range): BP systolic 92–144; BP diastolic 51–65; PULSE 64–131; RESP 18–24; TEMP 36.6–37.6; O2SAT 92–96
[2019-11-12] MEDS: ALBUTEROL SULFATE NEB 2.5 MG/0.5 ML INH INHALATION ×4 (04:03→20:31)
[2019-11-12] MEDS: IPRATROPIUM BR 0.02% INH SOLN 0.5 MG/2.5 ML VIAL INHALATION ×4 (04:03→20:31)
[2019-11-12 05:55] LABS: Blood Urea Nitrogen 32 mg/dL (9-20); Calcium 8.8 mg/dL (8.4-10.2); Carbon Dioxide 28 mmol/L (22-30); Chloride 90 mmol/L (98-107); Estimated CRCL calculation 52 ml/min; Estimated Glomerular Filt Rate 51; Glucose 127 mg/dL (75-110); Potassium 3.6 mmol/L (3.4-5.0); Sodium 133 mmol/L (137-145)
[2019-11-12] MEDS: RIVAROXABAN 20 MG TABLET PO (08:48)
[2019-11-12] MEDS: ROSUVASTATIN 10 MG TABLET 40 MG PO (08:48)
[2019-11-12] MEDS: FUROSEMIDE 40 MG TABLET PO ×2 (08:49→16:48)
[2019-11-12] MEDS: AZITHROMYCIN 250 MG TABLET PO (08:49)
[2019-11-12] MEDS: FAMOTIDINE 20 MG/2 ML VIAL IV PUSH ×2 (08:49→21:41)
[2019-11-12] MEDS: lisinopriL 20 MG TABLET 40 MG PO (08:49)
[2019-11-12] MEDS: POTASSIUM CHLORIDE 20 MEQ TABLET.ER PO (08:53)
[2019-11-12] MEDS: METOPROLOL TARTRATE 50 MG TAB 100 MG PO ×2 (08:53→21:43)
--- NOTE | 2019-11-12 11:08 | PM.IMPN ---
Progress Note: A&P Assessment and Plan (1) Acute on chronic diastolic CHF (congestive heart failure): Code(s): I50.33 - Acute on chronic diastolic (congestive) heart failure Status: Acute Assessment and Plan: Patient having excellent UOP and edema slowly improving. Echo as mentioned below. Kidney function higher but stable at Cr 1.4. Electrolytes stable. Appreciate Cardiology input. Atrial fibrillation probably contributing to the CHF. Lasix changed to oral route. Continue to monitor. (2) Atrial fibrillation with RVR: Code(s): I48.91 - Unspecified atrial fibrillation Status: Acute Assessment and Plan: Known atrial fibrillation. Remains on home diltiazem and metoprolol. HR elevated at times possibly due to increase activity and prior to next dose. Continue Xarelto for anticoagulation. Continue tele. (3) Recurrent pneumonia: Code(s): J18.9 - Pneumonia, unspecified organism Status: Acute Assessment and Plan: CT chest on 11/06/19 with interval development of extensive ground-glass opacification with underlying interstitial infiltrates at the right upper and lower lobe, near complete resolution of bilateral lower lobe consolidation, progression of mediastinal lymphadenopathy likely reactive and small pleural effusions. Has been having this nonproductive cough but now productive beginning on 11/11/19. WBC normal but temp to 100.4. Urine Legionella and strep pneumoniae antigens are negative. CXR (11/11/19) showing persistent LLL airspace disease. Blood culture pending. Sputum cutlure NGTD. MRSA swab pending. Continue Rocephin and Azithro. Continue nebulizer treatments. (4) Hematuria: Code(s): R31.9 - Hematuria, unspecified Status: Acute Assessment and Plan: UA showing 3+ Blood with >75 RBC. WBC normal but CRP 4.9. Had hematuria a few weeks ago but resolved. Suspect he may have persistent microscopic hematuria. Patient on Xarelto. Ex-smoker. Will check renal US and consider further evaluation if negative. (5) CAD (coronary artery disease): Code(s): I25.10 - Atherosclerotic heart disease of [place] coronary artery without angina pectoris Status: Acute Assessment and Plan: Patient had a cardiac catheterization in June 2019 with 40-50% eccentric stenosis proximal to mid LAD, 30-40% eccentric stenosis mid circumflex, 70% stenosis proximal segment up to smart channel, 70-80% stenosis proximal segment LP PL branch, small non dominant RCA with moderate to severe disease in mid segment, EF 60%. Continue medical management with metoprolol, Crestor. (6) Leg edema: Code(s): R60.0 - Localized edema Status: Acute Assessment and Plan: Most likely result of CHF exacerbation, diltiazem use. On IV Lasix as noted above. Venous Dopplers of the lower extremities negative for DVT. Will monitor with diuresis. (7) Aortic stenosis: Qualifiers: Cardiac valve disease etiology: nonrheumatic Qualified Code(s): I35.0 - Nonrheumatic aortic (valve) stenosis Code(s): I35.0 - Nonrheumatic aortic (valve) stenosis Status: Acute Assessment and Plan: Per Cardiology, echo done 08/27/2019 at [facility] with EF 60-65%, mild aortic valve calcification with moderate aortic stenosis. Continue treatment of other issues as noted. (8) Benign essential hypertension: Code(s): I10 - Essential (primary) hypertension Status: Acute Assessment and Plan: Blood pressure reviewed 11/12/2019. BP up and down at times. Continue diltiazem, lisinopril and metoprolol. Watch for HoTN. Adjust treatment as needed. (9) Chronic obstructive pulmonary disease, unspecified: Qualifiers: COPD type: unspecified COPD Qualified Code(s): J44.9 - Chronic obstructive pulmonary disease, unspecified Code(s): J44.9 - Chronic obstructive pulmonary disease, unspecified Statu
--- NOTE | 2019-11-12 12:31 | PM.PNCARD ---
Progress Note: A&P Assessment and Plan (1) Acute on chronic diastolic CHF (congestive heart failure): Code(s): I50.33 - Acute on chronic diastolic (congestive) heart failure Status: Acute Assessment and Plan: Pre renal 11/11/2019 changed to furosemide p.o. b.i.d.. Shortness of breath, lower extremity edema and energy level have improved but he still complains of the symptoms. Cough is what really bothers him. (2) Atrial fibrillation with RVR: Code(s): I48.91 - Unspecified atrial fibrillation Status: Acute Assessment and Plan: Chronic atrial fibrillation. Elevated heart rates with activity. Continue Metoprolol and diltiazem. Anticoagulated with Xarelto. (3) Aortic stenosis: Qualifiers: Cardiac valve disease etiology: nonrheumatic Qualified Code(s): I35.0 - Nonrheumatic aortic (valve) stenosis Code(s): I35.0 - Nonrheumatic aortic (valve) stenosis Status: Acute Assessment and Plan: Echocardiogram 08/27/[address] Madsen at [facility] revealed: Normal LV size. Moderate LVH. Normal LV systolic function. Ejection fraction 60-65%. Mild left atrial enlargement with spontaneous echo contrast. No definite left atrial appendage thrombus. Small intra arterial shunt on Doppler however no [id number] shunt on injection of agitated normal saline. Normal mitral valve. Mild MR. Mild aortic valve calcification with diminished leaflet excursions of the left coronary; average planned metered aortic valve area 1.2 centimeter sq consistent with moderate aortic stenosis. Additional Plan Recommend keeping him at least 1 more day monitor his renal function Discharge instructions entered for possible discharge over the weekend. He has not been using his home albuterol inhalers. Questioned why the solution that he was using in his nebulizer at home did not work. Vials he has at bedside are labeled sterile water for inhalation. Instructed that they contain no medication. Plan discussed with Dr. Castaneda 1930 11/12/2019 Subjective Date/time seen: 11/12/19 12:31 Interval history: Follow-up for: CHF exacerbation, pneumonia Date of service: 11/12/2019. Subjective: Feeling somewhat better. Still has cough. Slept approximately 15 hours yesterday. Lower extremity edema improving. Shortness of breath with exertional activity improved. No lightheadedness or chest discomfort. Feels that he is not voiding very much with the doses of Lasix. Review of Systems Review of Systems: All systems reviewed & are unremarkable except as noted in HPI and below Constitutional: Constitutional: Denies headache(s) and Reports lethargy (Improving) Eyes: Eyes: Denies blurry vision ENT: Reports Normal hearing present, Denies headache(s), Denies epistaxis and Denies neck pain Cardiovascular: Cardiovascular: Denies chest pain, Denies diaphoresis, Reports pedal edema (Improved), Reports leg edema (Improved), Denies lightheadedness, Denies palpitations and Reports dyspnea on exertion (Improving) Respiratory: Respiratory: Reports cough (Nonproductive), Reports dyspnea on exertion (Improved) and Denies wheezing Gastrointestinal: Gastrointestinal: Denies abdominal pain, Denies nausea and Denies vomiting Genitourinary: Genitourinary: Denies hematuria Musculoskeletal: Musculoskeletal: Denies back pain, Denies neck pain and Denies numbness Integumentary/Breasts: Skin/Breast: Reports dry skin and Denies unusual bruising Neurologic: Reports Normal hearing present, Denies headache(s) and Denies numbness Psychiatric: Psychiatric: Denies anxiety Endocrine: Endocrine: Denies palpitations Allergic/Immunologic: Allergic/Immunologic: Denies wheezing Exam Const: General: cooperative and comfortable Nutritional Appearance: obese Orientation/consciousness: patient o
[2019-11-12] MEDS: MELATONIN 3 MG TABLET PO (21:41)
[2019-11-13] VITALS (11 sets, daily range): BP systolic 91–109; BP diastolic 36–59; PULSE 72–115; RESP 16–20; TEMP 36.2–36.3; O2SAT 92–97
[2019-11-13] MEDS: IPRATROPIUM BR 0.02% INH SOLN 0.5 MG/2.5 ML VIAL INHALATION ×2 (01:32→09:19)
[2019-11-13] MEDS: ALBUTEROL SULFATE NEB 2.5 MG/0.5 ML INH INHALATION ×2 (01:32→09:19)
[2019-11-13 05:15] LABS: Hematocrit 35.6 % (42.0-52.0); Hemoglobin 11.1 g/dL (14.0-18.0); Mean Corpuscular HGB Conc 31.2 g/dl (32-36); Mean Corpuscular Hemoglobin 28.1 pg (26-34); Mean Corpuscular Volume 90.1 fl (80-100); Mean Platelet Volume 9.7 fl (7.4-10.4); Platelet Count Result 170 k/mm3 (150-375); Red Blood Count 3.95 M/mm3 (4.6-6.20); Red Cell Distribution Width 16.7 % (11.5-14.5)
[2019-11-13 05:35] LABS: Blood Urea Nitrogen 37 mg/dL (9-20); Calcium 8.5 mg/dL (8.4-10.2); Carbon Dioxide 31 mmol/L (22-30); Chloride 94 mmol/L (98-107); Estimated CRCL calculation 52 ml/min; Estimated Glomerular Filt Rate 51; Glucose 142 mg/dL (75-110); Potassium 3.7 mmol/L (3.4-5.0); Sodium 138 mmol/L (137-145)
[2019-11-13] MEDS: FAMOTIDINE 20 MG TABLET PO (09:39)
[2019-11-13] MEDS: METOPROLOL TARTRATE 50 MG TAB 100 MG PO (09:39)
[2019-11-13] MEDS: AZITHROMYCIN 250 MG TABLET PO (09:39)
[2019-11-13] MEDS: lisinopriL 20 MG TABLET 40 MG PO (09:39)
[2019-11-13] MEDS: POTASSIUM CHLORIDE 20 MEQ TABLET.ER PO (09:40)
[2019-11-13] MEDS: ROSUVASTATIN 10 MG TABLET 40 MG PO (09:40)
[2019-11-13] MEDS: RIVAROXABAN 20 MG TABLET PO (09:40)
[2019-11-13] MEDS: FUROSEMIDE 40 MG TABLET PO (09:41)
--- NOTE | 2019-11-13 11:20 | PM.DS ---
DS: Diagnosis Admitting Diagnosis Admitting Diagnosis: Acute on chronic diastolic (congestive) heart failure Discharge Diagnosis (1) Acute on chronic diastolic CHF (congestive heart failure): Code(s): I50.33 - Acute on chronic diastolic (congestive) heart failure Status: Acute Assessment and Plan: Patient treated with IV diuretics and was having excellent UOP with edema slowly improving. Echo as mentioned below. Kidney function higher but stable at Cr 1.4. Electrolytes stable. Appreciate Cardiology input. Atrial fibrillation probably contributing to the CHF. Lasix changed to oral route. (2) Atrial fibrillation with RVR: Code(s): I48.91 - Unspecified atrial fibrillation Status: Acute Assessment and Plan: Known atrial fibrillation. Remains on home diltiazem and metoprolol. HR elevated at times possibly due to increase activity and prior to next dose. Continued Xarelto for anticoagulation. (3) Recurrent pneumonia: Code(s): J18.9 - Pneumonia, unspecified organism Status: Acute Assessment and Plan: CT chest on 11/06/19 with interval development of extensive ground-glass opacification with underlying interstitial infiltrates at the right upper and lower lobe, near complete resolution of bilateral lower lobe consolidation, progression of mediastinal lymphadenopathy likely reactive and small pleural effusions. Has been having this nonproductive cough but now productive beginning on 11/11/19. WBC normal but temp to 100.4. Urine Legionella and strep pneumoniae antigens are negative. CXR (11/11/19) showing persistent LLL airspace disease. Blood culture NGTD. Sputum cutlure negative. MRSA swab negative. Treated with Rocephin and Azithromycin with improvement. Narrowed to Azithromycin at discharge. Nebulizer treatments also used. (4) Hematuria: Code(s): R31.9 - Hematuria, unspecified Status: Acute Assessment and Plan: UA showing 3+ Blood with >75 RBC. WBC normal but CRP 4.9. Had hematuria a few weeks ago but resolved. Suspect he may have persistent microscopic hematuria. Patient on Xarelto. Ex-smoker. Renal US showing 2.7cm right cyst but they did recommend a CT scan. This will be ordered as an outpatient. Patient informed and all questions answered. (5) CAD (coronary artery disease): Code(s): I25.10 - Atherosclerotic heart disease of [place] coronary artery without angina pectoris Status: Acute Assessment and Plan: Patient had a cardiac catheterization in June 2019 with 40-50% eccentric stenosis proximal to mid LAD, 30-40% eccentric stenosis mid circumflex, 70% stenosis proximal segment up to smart channel, 70-80% stenosis proximal segment LP PL branch, small non dominant RCA with moderate to severe disease in mid segment, EF 60%. We continued medical management with metoprolol, Crestor. (6) Leg edema: Code(s): R60.0 - Localized edema Status: Acute Assessment and Plan: Most likely result of CHF exacerbation, diltiazem use. On IV Lasix as noted above. Venous Dopplers of the lower extremities negative for DVT. Edema improvd with diuresis (7) Aortic stenosis: Qualifiers: Cardiac valve disease etiology: nonrheumatic Qualified Code(s): I35.0 - Nonrheumatic aortic (valve) stenosis Code(s): I35.0 - Nonrheumatic aortic (valve) stenosis Status: Acute Assessment and Plan: Per Cardiology, echo done 08/27/2019 at [facility] with EF 60-65%, mild aortic valve calcification with moderate aortic stenosis. Continue treatment of other issues as noted. (8) Benign essential hypertension: Code(s): I10 - Essential (primary) hypertension Status: Acute Assessment and Plan: Blood pressure reviewed. BP up and down at times. Treated with diltiazem, lisinopril and metoprolol. (9) Chronic obstructive pulmonary disease, unspecified: Qualifi
== END 2019-11-13 14:40 | disposition home or self-care (01) | DRG 291 ==
LOC: ANHED 17:03 → ANH2MED 17:15 → ANHIMU 18:03
PROVIDERS: Emergency Medicine; Hospitalist; Nurse Practitioner Adult Health; Physician Assistant; Admitting Provider Family Medicine; Emergency Provider Emergency Medicine; PCP Nurse Practitioner; Visit Provider Internal Medicine
DX: I11.0 Hypertensive heart disease with heart failure (principal); J18.9 Pneumonia, unspecified organism; I48.20 Chronic atrial fibrillation, unspecified; J44.0 Chronic obstructive pulmonary disease with (acute) lower respiratory infection; N02.9 Recurrent and persistent hematuria with unspecified morphologic changes; I50.33 Acute on chronic diastolic (congestive) heart failure; Z79.01 Long term (current) use of anticoagulants; I35.0 Nonrheumatic aortic (valve) stenosis; E78.5 Hyperlipidemia, unspecified; I27.20 Pulmonary hypertension, unspecified; I25.10 Atherosclerotic heart disease of native coronary artery without angina pectoris; R60.0 Localized edema; T46.1X5A Adverse effect of calcium-channel blockers, initial encounter; Z87.891 Personal history of nicotine dependence
CPT/HCPCS: 36415; 71046; 71250; 76775; 80048; 80069; 81001; 83036; 83735; 83880; 84484; 85025; 85027; 85610; 85730; 86140; 87040; 87070; 87081; 87205; 87449; 87899; 93005; 93970; 94640; 96374; 96375; 96376; 99285; A9270; G0378; G0379; J0696; J1940

== ENCOUNTER → 2019-11-22 15:48 | Outpatient (CLI) | payer OTHER, SELFPAY ==
--- NOTE | ~2019-11-22 | CT_ITS ---
EXAMINATION: CT abdomen pelvis wo con DATE: 11/22/2019 16:14 INDICATION: Hematuria TECHNIQUE: Computed tomography (CT) of the abdomen and pelvis was performed without intravenous contr ast. The dose-length product was 1014.88 mGy-cm. Automated exposure control and iterative reconstruct ion technique were employed. COMPARISON: None. FINDINGS: There is bilateral lower lobe peribronchial thickening. There is atherosclerosis of the aor ta and coronary arteries. No aneurysm. There are gallstones. There is a 3 cm right renal cyst with layering milk of calcium. There are bilat eral renal arterial vascular calcifications. There is a bladder stone. Bowel pattern is nonobstructiv e. No lymphadenopathy. There is a small fat-containing umbilical hernia. There is ankylosis of the le ft sacroiliac joint. There is osteoarthritis of the hips. Mild levoscoliosis of the thoracolumbar spi ne. Bowel pattern is nonobstructive. Normal appendix. No abnormal pelvic masses or fluid collections. Few scattered colonic diverticula without evidence for diverticulitis. IMPRESSION: 1. Cholelithiasis. 2: Bladder stone. 3: 3 cm right renal cyst with layering milk of calcium. 4: Bilateral lower lobe peribronchial thickening which may represent bronchiolitis/bronchitis. Reviewed, dictated and finalized at location A. TH THERAPIST IMPRESSION: 1. Cholelithiasis. 2: Bladder stone. 3: 3 cm right renal cyst with layering milk of calcium. 4: Bilateral lower lobe peribronchial thickening which may represent bronchiol itis/bronchitis.
== END ==
PROVIDERS: PCP Nurse Practitioner; Visit Provider Nurse Practitioner
DX: R31.9 Hematuria, unspecified (principal); K80.20 Calculus of gallbladder without cholecystitis without obstruction; N21.0 Calculus in bladder; N28.1 Cyst of kidney, acquired; R91.8 Other nonspecific abnormal finding of lung field
CPT/HCPCS: 74176

== ENCOUNTER → 2019-12-03 14:36 | Outpatient (CLI) | payer OTHER, SELFPAY ==
--- NOTE | ~2019-12-03 | XR_ITS ---
EXAMINATION: XR chest 2V EXAM DATE: 12/03/2019 14:58 INDICATION: Pneumonia, unspecified organism. TECHNIQUE: Frontal and lateral projections of the chest obtained and reviewed. Comparison is made to prior examination from 11/11/2019. FINDINGS: Left upper lobe granuloma. The lungs are otherwise clear. There are no pleural effusions. The cardiomediastinal silhouette is within normal limits. There is no pneumothorax suspected. The bones and soft tissues are unremarkable. IMPRESSION: No acute cardiopulmonary findings. Reviewed, dictated and finalized at location B. ICAL CELL CHANGER
== END ==
PROVIDERS: PCP Nurse Practitioner; Visit Provider Nurse Practitioner
DX: J18.9 Pneumonia, unspecified organism (principal)
CPT/HCPCS: 71046

== ENCOUNTER 2020-04-09 16:23 | Inpatient (IN) | payer OTHER, SELFPAY ==
--- NOTE | ~2020-04-09 | US_ITS ---
EXAMINATION: US carotid duplex BI DATE: 04/10/2020 12:35 INDICATION: Acute right temporal lobe infarct. TECHNIQUE: Grayscale, color Doppler, and pulsed Doppler images of the cervical carotid arteries were obtained. The degree of vessel stenosis is placed in one of the following categories: normal, <50%, 5 0-69%, >=70% but less than near-occlusion, near-occlusion, or total occlusion. Note that percent sten osis relative to normal distal artery lumen diameter is indirectly measured from velocity measurement s as described by Romulo, et al. Radiology 2003; 229:340-346. COMPARISON: None. FINDINGS: RIGHT: The right common carotid artery (CCA) peak systolic velocity (PSV) is 78 cm/s. The right internal car otid artery (ICA) PSV is 97 cm/s. The right ICA end-diastolic velocity (EDV) is 19 cm/s. The right IC A/CCA PSV ratio is 1.2. Grayscale and color Doppler images yield an estimate of <50% diameter reducti on from plaque in the ICA. There is antegrade flow in the right vertebral artery. LEFT: The left CCA PSV is 82 cm/s. The left ICA PSV is 107 cm/s. The left ICA EDV is 19 cm/s. The left ICA/ CCA PSV ratio is 1.3. Grayscale and color Doppler images yield an estimate of <50% diameter reduction from plaque in the ICA. There is antegrade flow in the left vertebral artery. IMPRESSION: 1. <50% stenosis in the right internal carotid artery. 2. <50% stenosis in the left internal carotid artery. Reviewed, dictated and finalized at location A.
--- NOTE | ~2020-04-09 | MR_ITS ---
EXAMINATION: MR brain/brain stem wo/w con DATE: 04/10/2020 12:23 INDICATION: Dizziness. Stroke. TECHNIQUE: Magnetic resonance imaging (MRI) of the brain and brainstem was performed without and with 20 mL MultiHance intravenous contrast. Sequences included sagittal and axial T1-weighted FSE, axial diffusion-weighted FS EPI, axial T2*-weighted GRE, axial T2-weighted FLAIR Propeller, and axial T2-we ighted Propeller. Postcontrast sequences included axial and coronal T1-weighted FSE. Apparent diffusi on coefficient (ADC) maps were created. COMPARISON: Head CT 04/09/2020, 08/12/2010 FINDINGS: There is a small acute infarct in right frontal lobe. There is a small acute infarct in rig ht insula. There is an acute infarct involving the right temporal lobe and right insula. There is an old infarct in the right frontal lobe. Foci of decreased T2*-weighted signal intensity in this distri bution may be calcifications or old blood products. There are chronic dystrophic calcifications in th e periventricular left parietal lobe. There are small old infarcts in the cerebellum bilaterally. The re are scattered areas of nonspecific increased T2-weighted signal intensity in the cerebral white ma tter, which is within normal limits for the patient's age. The ventricles are normal in size. The par anasal sinuses are clear. The orbits are normal. The mastoid air cells are normal. IMPRESSION: 1. Acute infarcts involving the right frontal lobe, right temporal lobe, and right insula in the expe cted distribution of right middle cerebral artery. 2. Old infarcts involving the right frontal lobe and cerebellum. Reviewed, dictated and finalized at location A. IMPRESSION: 1. Acute infarcts involving the right frontal lobe, right temporal lobe, and ri ght insula in the expected distribution of right middle cerebral artery. 2. Old infarcts involving the right frontal lobe and cerebellum.
--- NOTE | ~2020-04-09 | CT_ITS ---
EXAMINATION: CTA brain carotid DATE: 04/09/2020 17:37 INDICATION: Dizziness TECHNIQUE: Computed tomography (CT) of the head was performed without and subsequently with 100 cc Om nipaque 350 intravenous contrast. The mA was adjusted according to patient size. Sagittal and coronal reconstructions. Three-dimensional reconstructions were performed by the technologist. Iterative rec onstruction technique was employed. Exam dose: 1777.35 mGy-cm total exam DLP. COMPARISON: 08/12/2010 CT brain FINDINGS: There is chronic encephalomalacia in the right frontal parietal area likely secondary to ol d cerebrovascular accident. There is evidence of a subacute infarct involving a large distribution of the right temporal parietal area in the middle cerebral artery distribution. Bilateral vertebral artery, basilar artery and bilateral carotid siphon internal carotid artery calci fications. No vertebral or carotid or cerebral artery occlusion is evident. There is nonspecific diminished attenuation of the subcortical and periventricular cerebral white mat ter, likely due to chronic small vessel ischemic changes. No intracranial mass lesion or hemorrhage, midline shift. No subdural or epidural hematoma. There are atherosclerotic calcifications of the carotid bulbs and proximal internal carotid arteries, with greater stenosis at the proximal internal carotid artery on the left. No fracture or bone destruction of the cranial vault. The mastoid air cells and included paranasal sinuses are normally developed and aerated. IMPRESSION: Right middle cerebral artery territory subacute temporoparietal infarct Old right frontoparietal infarct No intracranial mass lesion or hemorrhage Reviewed, dictated and finalized at Location A. Reviewed, dictated and finalized at location A. IMPRESSION: Right middle cerebral artery territory subacute temporoparietal in farct Old right frontoparietal infarct No intracranial mass lesion or hemorrhage
[2020-04-09 16:32] VITALS: BP 155/61; PULSE 83; RESP 18; TEMP 37; O2SAT 100
--- NOTE | 2020-04-09 16:43 | ECG_ITS ---
Measurements Intervals [place] Rate: 85 P: [place]: 0 QRS: 50 QRSD: 91 T: 38 QT: 376 QTc: 449 Interpretive Statements ATRIAL FIBRILLATION ABNORMAL ECG Electronically Signed On 04-09-2020 20:43:33 CDT by Sushant Lassiter D.O.
[2020-04-09 16:57] LABS: Basophils Percent Auto 0.1 % (0.2-1.2); Hematocrit 36.2 % (42.0-52.0); Hemoglobin 12.1 g/dL (14.0-18.0); Immature Granulocyte Absolute 0.02 K/mm3 (0.00-0.031); Immature Granulocyte Percent A 0.2 % (0-0.5); Lymphocytes Absolute Auto 1.23 K/mm3 (0.9-3.2); Lymphocytes Percent Auto 12.5 % (18.3-44.2); Mean Corpuscular HGB Conc 33.4 g/dl (32-36); Mean Corpuscular Hemoglobin 30.3 pg (26-34); Mean Corpuscular Volume 90.7 fl (80-100); Mean Platelet Volume 9.2 fl (7.4-10.4); Monocytes Absolute Auto 0.7 K/mm3 (0.1-0.6); Monocytes Percent Auto 7.5 % (2.6-8.5); Neutrophils Absolute Auto 7.8 K/mm3 (1.3-6.7); Neutrophils Percent Auto 79.7 % (45.5-73.1); Platelet Count Result 184 k/mm3 (150-375); Red Blood Count 3.99 M/mm3 (4.6-6.20); Red Cell Distribution Width 13.7 % (11.5-14.5); White Blood Count 9.8 K/mm3 (4.5-10.0)
[2020-04-09 17:08] LABS: Alanine Aminotransferase 22 U/L (4-50); Albumin Level 4.3 g/dL (3.5-5.1); Alkaline Phosphatase 59 U/L (38-126); Aspartate Amino Transferase 25 U/L (17-59); Bilirubin,Total 0.4 mg/dL (0.2-1.3); Blood Urea Nitrogen 17 mg/dL (9-20); Calcium 8.9 mg/dL (8.4-10.2); Carbon Dioxide 22 mmol/L (22-30); Chloride 103 mmol/L (98-107); Estimated CRCL calculation 65 ml/min; Estimated Glomerular Filt Rate > 60; Glucose 115 mg/dL (75-110); Potassium 3.8 mmol/L (3.4-5.0); Sodium 135 mmol/L (137-145)
--- NOTE | 2020-04-09 17:19 | ED.GENADULT ---
HPI - General Adult General Chief complaint: Altered Mental Status Stated complaint: Dizzy, SOB Time Seen by Provider: 04/09/20 16:43 History of Present Illness HPI narrative: Patient is a 69 y/o male complaining of moderate dizziness since 8:00 PM yesterday. He describes his dizziness as light-headedness. He denies any room spinning sensation. He states that he had difficult driving and spilled water on the counter yesterday. There is no alleviating or exacerbating factor. He denies any focal weakness, numbness or speech difficulty. Related Data Allergies Allergy/AdvReac Type Severity Reaction Status Date / Time venom-honey bee Allergy Unknown Swelling Verified 04/09/20 16:44 Review of Systems Constitutional: Constitutional: Denies chills, Denies fever(s), Denies headache(s) and Denies weakness Eyes: Eyes: Denies blurry vision ENT: Denies headache(s) and Denies neck pain Cardiovascular: Cardiovascular: Denies chest pain and Denies dyspnea Respiratory: Respiratory: Denies cough and Denies dyspnea Gastrointestinal: Gastrointestinal: Denies abdominal pain, Denies diarrhea, Denies nausea and Denies vomiting Genitourinary: Genitourinary: Denies hematuria and Denies dysuria Musculoskeletal: Musculoskeletal: Denies back pain and Denies neck pain Neurologic: Reports dizziness, Reports headache(s) and Denies weakness PMFSH Past Medical History Medical History Aortic stenosis Atrial fibrillation Benign essential hypertension Chronic obstructive pulmonary disease, unspecified History of transesophageal echocardiography (NENA) HLD (hyperlipidemia) HTN (hypertension) Pneumonia Pulmonary hypertension Surgical History Surgical History H/O elbow surgery bilateral ulnar tunnel release H/O repair of right rotator cuff History of cardiac catheterization History of carpal tunnel release bilaterally Hx of tonsillectomy Status post left foot surgery After fracture Family History Family History Mother Patient's mother is , Onset Age: 75 Father Patient's father is , Onset Age: 8 Social History Social History Smoking status: Former smoker Tobacco type: cigarettes and e-cigarettes/vaping Smoking end date: 10/06/11 Alcohol intake: never Substance use: never Additional living arrangements comments: He lives at home in [place], [place] with his . Additional occupation/education comments: He works at a [employer] for the last 28 years and currently is working. He does have smoke exposure from the fumes. Gender identity (if verbalized by the patient): Male Spiritual care concerns: No Agree to blood products: Yes Exam Const: General: no acute distress and well developed Orientation/consciousness: oriented to person, oriented to place, oriented to time and patient oriented x3 HENMT: Head: normocephalic Ears: external ears normal General nose exam: Normal external nose present Eyes: General: appearance normal, both eyes and all related structures Conjunctivae: conjunctivae normal Neck: Neck: normal visual inspection and full ROM Chest: Chest palpation & inspection: normal inspection of the chest and no tenderness Resp: Effort & Inspection: normal respiratory effort Auscultation: clear to auscultation bilaterally Cardio: Rate: regular rate Rhythm: abnormal rhythm regularly irregular GI: GI Palp: No abdominal tenderness and Yes Soft to palpation Skin: General skin exam: normal color and turgor normal Neuro: General: oriented to person, oriented to place, oriented to time and patient oriented x3 Cranial nerves: Yes CN's II-XII intact bilaterally Cognition (Neuro): normal cognition Speech: normal speech Motor exam (neuro): 5
[2020-04-09] MEDS: SODIUM CHLORIDE 0.9% IV 1,000 ML 999 ML IV CONT (17:58)
[2020-04-09 18:30] VITALS: BP 155/89; PULSE 75; RESP 19; TEMP 36.7; O2SAT 94
[2020-04-09 18:35] LABS: INR 1.1; Prothrombin Time 14.1 Seconds (11.1-14.7)
[2020-04-09 18:36] LABS: Partial Thromboplastin Time 27.5 SECONDS (22.3-36.8)
[2020-04-09 18:39] LABS: Add Urine Microscopic? NO; Appearance Urine Clear (Clear); Bilirubin Urine Negative (Negative); Blood Urine Negative (Negative); Color Urine Straw (Yellow); Glucose Urine UA Negative (Negative); Ketones Urine Negative (Negative); Leukocyte Esterase Ur Negative LEU/UL (Negative); Nitrate Urine Negative (Negative); Protein Urine Negative (Negative); Urobilinogen Urine Negative mg/dL (<2.0)
[2020-04-09 20:10] VITALS: BP 150/82; PULSE 67; RESP 94; TEMP 36.2; O2SAT 22
[2020-04-09 20:54] VITALS: BP 149/70; PULSE 75; RESP 20; TEMP 36.9; O2SAT 99
[2020-04-09 21:00] VITALS: BP 141/68; PULSE 62; RESP 18; TEMP 36.4; O2SAT 95; BMI 35.5
--- NOTE | 2020-04-09 21:31 | ADMGEN ---
This patient, Pérez Meyers I, was admitted to 3 [facility] Surg Room 321-02 at 2054. Patient/family oriented to hospital policies and general routines including ID bracelet, bed and alarms, visiting hours, pain management, procedures, bathroom and other care routines, personal items, smoking policy, room service/diet, and visiting hours. Valuables list has been completed. Information on how to activate the Rapid Response Team has been discussed. Patient/Family are encouraged to report perceived risks to care and to ask questions if they do not understand what they are told or what they should do.
[2020-04-10] VITALS (14 sets, daily range): BP systolic 124–143; BP diastolic 59–76; PULSE 51–103; RESP 18–22; TEMP 36.4–36.9; O2SAT 91–98
--- NOTE | 2020-04-10 | ECHO_ITS ---
Patient Info Name: Pérez Meyers Age: 69 years : 1950 Gender: Male Ht: 68 in Wt: 233 lbs BSA: 2.29 m2 HR: 59 bpm BP: 141 / 68 mmHg Heart Rhythm: Atrial Fibrillation Technical Quality: Fair Exam Date: 04/10/2020 2:20 PM Exam Location: [facility] Pulmonary Patient Status: Outpatient Admit Date: 04/09/2020 Staff Ordering Physician: Columba Barney NP Export Freight Specialist: Celi Greene RDCS Attending Provider: Peri Drummond PA-C Referring Physician: Savita NATARAJAN; Exam Type: CA echo doppler w bubble study Study Info Indications - STROKE Complete two-dimensional, color flow and Doppler transthoracic echocardiogram is performed with agitated saline. Contrast/Agitated Saline Contrast/Ag. Saline: Agitated Saline Amount: 20.00 ml Administered By: Aaliyah Silverio RN Summary 1. Left ventricular systolic function is normal, estimated at 55-60%. 2. There is no increased left ventricular wall thickness. 3. Left atrial chamber dimension is severely enlarged. 4. Right atrial chamber dimension is moderately enlarged. 5. There is moderate to severe aortic valve stenosis with a peak velocity of 400 cm/s, mean gradient of 39 mmHg, and aortic valve area of 1.0-1.1 cm2. 6. There is trace aortic valve regurgitation. 7. There is mild mitral valve regurgitation. 8. There is mild tricuspid valve regurgitation. 9. Severe pulmonary hypertension, estimated pulmonary arterial systolic pressure is 56 mmHg. 10. No interatrial shunt with injection of agitated saline with and without Valsalva. Recommendations * Consider transesophageal echocardiogram if clinically indicated. Left Ventricle Left ventricular chamber dimension is normal. Left ventricular systolic function is normal, estimated at 55-60%. There is no increased left ventricular wall thickness. The left ventricular diastolic function is indeterminate. Global longitudinal strain is mildly elevated at -14 %. Right Ventricle Right ventricular chamber dimension is normal. Right ventricular systolic function is normal. Left Atria Left atrial chamber dimension is severely enlarged. Right Atria Right atrial chamber dimension is moderately enlarged. Atrial Septum No interatrial shunt with injection of agitated saline with and without Valsalva. Aortic Valve The aortic valve is probable trileaflet. There is moderate to severe aortic valve stenosis with a peak velocity of 400 cm/s, mean gradient of 39 mmHg, and aortic valve area of 1.0-1.1 cm2. There is trace aortic valve regurgitation. There is moderate aortic valve calcification. Pulmonic Valve The pulmonic valve is not well visualized. There is trace pulmonic regurgitation. Mitral Valve The mitral valve has thickened leaflets. There is mild mitral valve regurgitation. The mitral valve annulus is moderately calcified. Tricuspid Valve The tricuspid valve leaflets are normal. There is mild tricuspid valve regurgitation. Severe pulmonary hypertension, estimated pulmonary arterial systolic pressure is 56 mmHg. Pericardium/Pleural The pericardium appears normal. There is no pericardial effusion. Inferior Vena Cava Dilated inferior vena cava with <50% collapse upon inspiration consistent with elevated right atrial pressure, 10 mmHg. Aorta The aortic root size at the sinus of Valsalva is normal. Left Ventricular Outflow Tract
--- NOTE | 2020-04-10 00:01 | PM.IMHP ---
H&P: HPI History of Present Illness Chief complaint: stroke Narrative: Pérez Meyers I is a 69 year old male the patient was complaining of some moderate dizziness around 8:00 a.m. yesterday. He also had a headache. Patient has no focal weakness but was slow to answer questions. See no numbness or tingling. No facial droop.The patient denies any shortness of breath. He is wheezing and complaining about not getting his inhalers today and he has COPD. H&H Is 12.[address] of the brain was read as right middle cerebral artery territory subacute temporoparietal infarct. Old right frontoparietal infarct. No and cranial mass lesion or hemorrhage. Neurology has been consulted. The patient has been on Xarelto for his atrial fibrillation. The patient's EKG was read as atrial fibrillation rate controlled. Patient is on room air. His complaining of having headaches. Review of Systems Review of Systems: All systems reviewed & are unremarkable except as noted in HPI and below Constitutional: Constitutional: Reports as per HPI and Reports no additional constitutional complaints Eyes: Eyes: Reports as per HPI and Reports no additional eye complaints ENT: Reports system reviewed and no additional complaints, except as documented and Reports Normal hearing present Cardiovascular: Cardiovascular: Reports no additional cardiovascular complaints Respiratory: Respiratory: Reports no additional respiratory complaints and Reports no additional respiratory complaints Gastrointestinal: Gastrointestinal: Reports as per HPI and Reports no additional gastrointestinal complaints Musculoskeletal: Musculoskeletal: Reports no additional musculoskeletal complaints Integumentary/Breasts: Skin/Breast: Reports system reviewed and no additional complaints, except as docu and Reports as per HPI Neurologic: Reports system reviewed and no additional complaints, except as documented, Reports as per HPI and Reports Normal hearing present Psychiatric: Psychiatric: Reports no additional psychiatric complaints and Reports as per HPI Endocrine: Endocrine: Reports no additional endocrine complaints Hematologic/Lymphatic: Hematologic/Lymphatic: Reports no additional hematologic/lymphatic complaints Allergic/Immunologic: Allergic/Immunologic: Reports no additional allergic/immunologic complaints [facility] Past Medical History Medical History Aortic stenosis Atrial fibrillation Benign essential hypertension Chronic obstructive pulmonary disease, unspecified History of transesophageal echocardiography (NENA) HLD (hyperlipidemia) HTN (hypertension) Pneumonia Pulmonary hypertension Surgical History Surgical History H/O elbow surgery bilateral ulnar tunnel release H/O repair of right rotator cuff History of cardiac catheterization History of carpal tunnel release bilaterally Hx of tonsillectomy Status post left foot surgery After fracture Family History Family History Mother Patient's mother is , Onset Age: 75 Father Patient's father is Social History Social History (Updated 04/10/20 @ 00:11 by Columba Barney NP) Social History: Patient lives with his . He has a desires to have her is a durable power civil attorney for healthcare. The patient is full code. Patient has 4 children. He works at the [employer] in [facility] on the [employer] machine and the [employer] set. Patient is a former smoker and uses smoke E cigarettes and they put. He smoked 1 and half packs cigarettes a day for 30 years. But he denies any alcohol, marijuana, or illicit drugs. Smoking packs per day: 1.5 Smoking cigarettes per day: 30.0 Smoking status: Former smoker Tobacco type: cigarettes and e-cigarettes/vaping Smoking end date: 10/06/11 Alcohol intake: former
[2020-04-10] MEDS: ALBUTEROL SULFATE NEB 2.5 MG/0.5 ML INH INHALATION ×4 (01:07→20:48)
[2020-04-10] MEDS: ACETAMINOPHEN 325 MG TABLET 650 MG PO (01:16)
[2020-04-10] MEDS: ROSUVASTATIN 10 MG TABLET 40 MG PO (08:12)
[2020-04-10] MEDS: POTASSIUM CHLORIDE 20 MEQ TABLET.ER PO (08:13)
[2020-04-10] MEDS: FUROSEMIDE 40 MG TABLET PO ×2 (08:14→15:55)
[2020-04-10] MEDS: lisinopriL 20 MG TABLET 40 MG PO (08:14)
[2020-04-10] MEDS: METOPROLOL TARTRATE 50 MG TAB 100 MG PO ×2 (10:14→15:55)
[2020-04-10] MEDS: RIVAROXABAN 20 MG TABLET PO (15:55)
--- NOTE | 2020-04-10 16:21 | PM.IMPN ---
Progress Note: A&P Assessment and Plan (1) Stroke: Qualifiers: CVA mechanism: unspecified Qualified Code(s): I63.9 - Cerebral infarction, unspecified Code(s): I63.9 - Cerebral infarction, unspecified Status: Acute Assessment and Plan: MRI brain shows acute right-sided infarcts in the expected distribution of right MCA; old infarcts in R frontal lobe and cerebellum. He reports he did not know he had a stroke in the past. History of A fib on Xarelto. He admits to missing some Xarelto doses. Continue his home Xarelto and statin therapy. Appreciate neurology consult. Echocardiogram with bubble study is pending. (2) Atrial fibrillation: Qualifiers: Atrial fibrillation type: unspecified Qualified Code(s): I48.91 - Unspecified atrial fibrillation Code(s): I48.91 - Unspecified atrial fibrillation Status: Acute Assessment and Plan: He is rate controlled on his home oral regimen with diltiazem and metoprolol. Continue Xarelto. Follows with Dr Madsen. (3) Chronic diastolic CHF (congestive heart failure): Code(s): I50.32 - Chronic diastolic (congestive) heart failure Status: Chronic Assessment and Plan: Appears well-compensated. Continue home regimen with beta-blockade and lasix. (4) Hyperlipidemia, mixed: Code(s): E78.2 - Mixed hyperlipidemia Status: Acute Assessment and Plan: Continue home statin therapy. (5) Chronic obstructive pulmonary disease, unspecified: Qualifiers: COPD type: unspecified COPD Qualified Code(s): J44.9 - Chronic obstructive pulmonary disease, unspecified Code(s): J44.9 - Chronic obstructive pulmonary disease, unspecified Status: Acute Assessment and Plan: He can continue his home Anoro if someone can bring it from home. No evidence of respiratory distress. Subjective Date/time seen: 04/10/20 0915 Interval history: Mr. Meyers is a 69yo M admitted for acute CVA. He described that his symptoms began 2 days ago when he started to feel dizzy, was driving and felt confused and pulled off into the grass. He is feeling back to normal now and is eager for discharge. He denies chest pain, palpitations, or shortness of breath. He is ambulating independently. He is tolerating oral intake without nausea or vomiting. Review of Systems Review of Systems: Narrative: Twelve systems were reviewed with pertinent positives and negatives as per HPI. Exam Narrative: Exam Narrative: General: Male sitting comfortably in bedside chair in no acute distress. Neuro: Alert and oriented. Slight facial droop noted with smiling; left hand pharmacy tech strength slightly decreased compared to left, ambulating independently. Speech is clear. HEENT: Normocephalic, EOMI, PERRL, oral mucosa moist, very slight left facial droop noted. Cardiovascular: Rate normal, rhythm irregular. Systolic murmur heard over left sternal border. Telemetry review shows atrial fibrillation with controlled rates HR 70s-90s. Respiratory: Lungs clear to auscultation all lopez. Non-labored breathing. Abdomen: Soft, non-tender, non-distended, bowel sounds present. Extremities: Peripheral pulses intact. Trace pitting edema JULIO. Negative rhonda's. Objective Data Vital Signs Vital Signs: Last Vital Signs Temp 98.5 F 04/10/20 14:00 Pulse 60 04/10/20 14:00 Resp 20 04/10/20 14:00 BP 140/59 L 04/10/20 14:00 Pulse Ox 98 04/10/20 14:00 Intake/Output Intake/Output: Intake & Output 04/07/20 04/08/20 04/09/20 04/10/20 23:59 23:59 23:59 23:59 Intake Total 1000 1600 Output Total 500 Balance 1000 1100 Meds/Results Medications: Active Medications Generic Name Dose Route Start Last Admin Trade Name Freq PRN Reason Stop Dose Admin Acetaminophen 650 mg 04/10/20 00
--- NOTE | 2020-04-10 20:13 | CONS_ITS ---
DATE OF CONSULTATION: 04/10/2020 HISTORY OF PRESENT ILLNESS: A 69-year-old right-handed male has been admitted to [facility] through the emergency room for the complaints of dizziness along with a headache, but no focal weakness or facial droop. The patient does have ongoing history of difficulties in breathing with COPD. Initial evaluation in the emergency room, he had a CT of the brain, which reveals subacute temporoparietal infarct in addition to old right frontoparietal infarct, but no evidence of bleed. The patient had been on Xarelto for atrial fibrillation, which was rate controlled. His past historyis consistent with as mentioned above, particularly aortic stenosis with atrial fibrillation, benign essential hypertension, COPD, transesophageal echocardiography has been done, history of hyperlipidemia, hypertension, and pulmonary hypertension. He has undergone elbow surgery, bilateral ulnar tunnel release, repair of the right rotator cuff, cardiac catheterization, carpal tunnel release bilaterally, tonsillectomy and left foot surgery subsequent to a fracture. He smokes [id number]-b-half pack per day, but former smoker, former drinker, never substance user. MEDICATIONS: At the time of admission, he was receivin. Lasix 40 mg b.i.d. 2. Rosuvastatin 40 mg daily. 3. Benazepril 40 mg daily. 4. Diltiazem 300 daily. 5. Metoprolol 100 mg twice a day. 6. Rivaroxaban 20 mg daily. 7. Potassium chloride 20 mEq daily. ALLERGIES: HE IS ALLERGIC TO VENOM AND HONEY BEE. ? Evaluation up until now included the carotid Doppler study, which revealed less than 50% stenosis in the right and left internal carotid artery. Brain MRI revealed acute infarct in the right frontal lobe, right temporal lobe, right insula in the distribution of right middle cerebral artery in addition to old infarct involving the right frontal lobe and cerebellum. Echocardiogram with 55% to 60% left ventricle systolic function, increased left ventricular wall thickness, severely enlarged left atrial chamber, moderately enlarged right atrial chamber, severe aortic valve stenosis with trace regurgitation of aortic, mitral, and tricuspid valves with severe pulmonary hypertension, but no intra-atrial shunt. MEDICATIONS: At this stage, the patient is receivin. Lisinopril 40 mg daily. 2. Diltiazem 300 mg daily. 3. Furosemide 40 mg twice a day. 4. Rivaroxaban 20 mg daily. 5. Rosuvastatin 40 mg daily. PHYSICAL EXAMINATION: GENERAL: On examination, he is awake, alert, cooperative, in no obvious acute distress. HEENT: Head normocephalic with no cranial bruit. Ear, nose, and throat examination normal. NECK: Supple with no cervical bruit. No thyromegaly. No lymphadenopathy. HEART: Regular with no murmur. LUNGS: Clear to auscultation. ABDOMEN: Soft with no organomegaly. HEART: Regular with murmur. LUNGS: Clear to auscultation with no crepitation. ABDOMEN: Soft with no organomegaly. NEUROLOGICAL: He is awake, alert, oriented x3. His speech not dysphasic, no dysarthric, no dysphonic. Pupils round, regular. Deluna of vision full. Extraocular movements full. Face symmetrical. Tongue midline. Uvula midline. Motor examination revealed him to have drift against gravity with hyperreflexia and upgoing plantar response on the left side. There is evidence of ataxia, dysmetria on [id number]-finger bilaterally. IMPRESSION: Bihemispheric stroke with anterior and posterior fossa in addition to the history of abnormal echocardiogram and also anticoagulation therapy. Treatment will be continued as such. In addition, we will obtain the Cardiology opinion again to see if any further intervention is necessary. LARISA DIANA M.D.
[2020-04-11] VITALS (7 sets, daily range): BP systolic 149; BP diastolic 52–77; PULSE 55–99; RESP 18–20; TEMP 36.8; O2SAT 90–93
[2020-04-11] MEDS: ALBUTEROL SULFATE NEB 2.5 MG/0.5 ML INH INHALATION ×2 (02:02→07:25)
[2020-04-11 06:39] LABS: Basophils Percent Auto 0.3 % (0.2-1.2); Eosinophils Absolute Auto 0.1 K/mm3 (0-0.3); Eosinophils Percent Auto 1.5 % (0-4.4); Immature Granulocyte Absolute 0.01 K/mm3 (0.00-0.031); Immature Granulocyte Percent A 0.1 % (0-0.5); Lymphocytes Absolute Auto 1.31 K/mm3 (0.9-3.2); Lymphocytes Percent Auto 19.2 % (18.3-44.2); Mean Corpuscular HGB Conc 33.3 g/dl (32-36); Mean Corpuscular Hemoglobin 30.8 pg (26-34); Mean Corpuscular Volume 92.3 fl (80-100); Mean Platelet Volume 9.2 fl (7.4-10.4); Monocytes Absolute Auto 0.6 K/mm3 (0.1-0.6); Monocytes Percent Auto 8.9 % (2.6-8.5); Neutrophils Absolute Auto 4.8 K/mm3 (1.3-6.7); Platelet Count Result 168 k/mm3 (150-375); Red Cell Distribution Width 13.8 % (11.5-14.5); White Blood Count 6.8 K/mm3 (4.5-10.0)
[2020-04-11 06:55] LABS: Alanine Aminotransferase 17 U/L (4-50); Albumin Level 3.8 g/dL (3.5-5.1); Alkaline Phosphatase 58 U/L (38-126); Aspartate Amino Transferase 20 U/L (17-59); Bilirubin,Total 0.4 mg/dL (0.2-1.3); Blood Urea Nitrogen 15 mg/dL (9-20); Calcium 8.7 mg/dL (8.4-10.2); Carbon Dioxide 30 mmol/L (22-30); Chloride 100 mmol/L (98-107); Estimated CRCL calculation 62 ml/min; Estimated Glomerular Filt Rate 60; Glucose 134 mg/dL (75-110); Potassium 3.5 mmol/L (3.4-5.0); Sodium 136 mmol/L (137-145)
[2020-04-11] MEDS: POTASSIUM CHLORIDE 20 MEQ TABLET.ER PO (08:51)
[2020-04-11] MEDS: FUROSEMIDE 40 MG TABLET PO (08:51)
[2020-04-11] MEDS: lisinopriL 20 MG TABLET 40 MG PO (08:51)
[2020-04-11] MEDS: ROSUVASTATIN 10 MG TABLET 40 MG PO (08:51)
[2020-04-11] MEDS: METOPROLOL TARTRATE 50 MG TAB 100 MG PO (08:51)
--- NOTE | 2020-04-11 09:51 | PM.DS ---
DS: Admitting Diagnosis Admitting Diagnosis Admitting Diagnosis: Cerebral infarction, unspecified DS: Discharge Diagnosis Discharge Diagnosis (1) Stroke: Qualifiers: CVA mechanism: unspecified Qualified Code(s): I63.9 - Cerebral infarction, unspecified Code(s): I63.9 - Cerebral infarction, unspecified Status: Acute Assessment and Plan: MRI brain shows acute right-sided infarcts in the expected distribution of right MCA; old infarcts in R frontal lobe and cerebellum. He reports he did not know he had a stroke in the past. History of A fib on Xarelto. He admits to missing some Xarelto doses. Continue his home Xarelto and statin therapy. Spoke with Becky with cardiology. No additional recommendations at this time other than taking his medication routinely. He has a follow up appointment May 24 and they will see him outpt. May consider eval for watchman procedure. (2) Atrial fibrillation: Qualifiers: Atrial fibrillation type: unspecified Qualified Code(s): I48.91 - Unspecified atrial fibrillation Code(s): I48.91 - Unspecified atrial fibrillation Status: Acute Assessment and Plan: He is rate controlled on his home oral regimen with diltiazem and metoprolol---confirmed with cardiology. Continue Xarelto. Follows with Dr Madsen. (3) Chronic diastolic CHF (congestive heart failure): Code(s): I50.32 - Chronic diastolic (congestive) heart failure Status: Chronic Assessment and Plan: Appears well-compensated. Continue home regimen with beta-blockade and lasix. (4) Hyperlipidemia, mixed: Code(s): E78.2 - Mixed hyperlipidemia Status: Acute Assessment and Plan: -----Continue home statin therapy. (5) Chronic obstructive pulmonary disease, unspecified: Qualifiers: COPD type: unspecified COPD Qualified Code(s): J44.9 - Chronic obstructive pulmonary disease, unspecified Code(s): J44.9 - Chronic obstructive pulmonary disease, unspecified Status: Acute Assessment and Plan: -----Continue home meds. DS: Summary Hospital Course Reason for hospitalization: Dizziness, altered mental status Hospital Course: Patient is 61-year-old male with chronic history of AFib who presented emergency room for dizziness, altered mental status, it hurt overall feeling different . Patient was seen in the ER and his white blood cell count was within normal limits, hemoglobin 12.1, hematocrit 36.2, platelets 184. BMP relatively normal with exception sodium 135. CTA showed right middle cerebral artery territory subacute temporoparietal infarct with no significant stenosis. Service and underwent a brain MRI which confirmed acute infarcts involving the right frontal lobe, right temporal lobe, right insula and expected distribution of the right MCA. No shunting noted On echo. The patient admits to missing occasional doses of his Xarelto and this is likely the cause of his stroke. Neurology saw the patient and suggested cardiology consult. I spoke with an, Cardiology who states that there is no additional recommendations and that he should follow-up with the office as already scheduled in May. He did well with physical therapy and occupational therapy but did not do well with speech therapy. He has some problems following commands and understanding questions. On my exam he was unable to comprehend how to do [id number]. He was educated that he should not drive and should have help with his family members as needed. He understands that he cannot miss any of his Xarelto medications. Overall, the patient was ready for discharge. He was educated about the worrisome signs and symptoms of go back to the emergency room for was discharged in stable condition. He should continue speech therapy outpatient Status at Discharge Functional status at discharge: independent ambulation Overall status at discharge: p
== END 2020-04-11 11:15 | disposition home or self-care (01) | DRG 65 ==
LOC: ANHED 16:43 → ANH3MEDSUR 19:06
PROVIDERS: Emergency Medicine; Nurse Practitioner; Admitting Provider Internal Medicine; Emergency Provider Emergency Medicine; PCP Nurse Practitioner; Visit Provider Physician Assistant
DX: I63.9 Cerebral infarction, unspecified (principal); E87.2 Acidosis; I50.32 Chronic diastolic (congestive) heart failure; R42 Dizziness and giddiness; R41.0 Disorientation, unspecified; I11.0 Hypertensive heart disease with heart failure; I48.91 Unspecified atrial fibrillation; J44.9 Chronic obstructive pulmonary disease, unspecified; I35.0 Nonrheumatic aortic (valve) stenosis; E78.2 Mixed hyperlipidemia; I27.20 Pulmonary hypertension, unspecified; R29.700 NIHSS score 0; Z87.891 Personal history of nicotine dependence
CPT/HCPCS: 36415; 70496; 70498; 70553; 80053; 81003; 83735; 84443; 85025; 85610; 85730; 92507; 92523; 93005; 93306; 93880; 94640; 96360; 96375; 97161; 97165; 99285; A9270; A9577; G0378; J7030; Q9967